=== PATIENT | male | born 1960 | race Caucasian/White ===

== ENCOUNTER 2016-05-30 04:59 | Inpatient (IN) | payer BC ==
[~2016-05-30] VITALS: Ht 167.6 cm; Wt 67.8 kg
[2016-05-30 05:59] LABS: BASO % 0.6 % (0.0-1.0); EOS # 0.2 K/mm3 (0.0-0.50); LARGE UNSTAINED CELL # 0.3 K/mm3 (0.0-0.4); LARGE UNSTAINED CELL % 3.4 % (0.0-4.0); LYMPH # 3.3 K/mm3 (1.5-4.5); LYMPH % 32.7 % (24.0-44.0); MEAN CORPUSCULAR HEMOGLOBIN 32.4 pg (27.0-33.0); MEAN CORPUSCULAR HGB CONC 33.5 g/dl (32.0-36.5); MEAN CORPUSCULAR VOLUME 96.6 fl (80.0-96.0); MONO # 0.9 K/mm3 (0.0-0.8); MONO % 9.4 % (0.0-5.0); NEUTROPHILS # 4.8 K/mm3 (1.8-7.7); PLATELET COUNT, AUTOMATED 291 k/mm3 (150-450); RED CELL DISTRIBUTION WIDTH 12.4 % (11.5-14.5); WHITE BLOOD COUNT 9.2 K/mm3 (4.0-10.0)
[2016-05-30 06:06] LABS: ANION GAP 7 MEQ/L (8-16); BLOOD UREA NITROGEN 12 MG/DL (7-18); CALCIUM LEVEL 9.2 MG/DL (8.5-10.1); CARBON DIOXIDE LEVEL 27 MEQ/L (21-32); CHLORIDE LEVEL 108 MEQ/L (98-107); CREATININE FOR GFR 1.01 MG/DL (0.70-1.30); GLOMERULAR FILTRATION RATE > 60.0 (>56); GLUCOSE, FASTING 87 MG/DL (70-105); POTASSIUM SERUM 3.9 MEQ/L (3.5-5.1); SODIUM LEVEL 142 MEQ/L (136-145)
--- NOTE | 2016-05-30 06:20 | REPUSA ---
CLINICAL HISTORY: Numbness. TECHNIQUE: Multiple axial brain CT scan sections were obtained from base to vertex without contrast a dministration. COMMENTS: The study shows normal configuration of sella turcica. There are no intra or extra-axial collections. There is no mass effect or midline shift. There is no evidence of hematoma formation. No hydrocephal us is present. No abnormal calcifications are noted. No significant abnormalities are seen either in the posterior fossa or supratentorial compartment. The sinuses and mastoid air cells are patent. IMPRESSION: No evidence of acute intracranial pathology. Thank you for your kind referral of this patient.
[2016-05-30] MEDS ORDERED: ASPIRIN 325 MG TAB As Ordered ONE (06:38)
[2016-05-30] MEDS ORDERED: ASPI81TA13 PO (07:12)
[2016-05-30] MEDS ORDERED: ROSU10TA PO (07:12)
--- NOTE | 2016-05-30 07:58 | REP ---
Clinical: Shortness of breath . Comparison: 03/21/2014 . Technique: PA. Findings: The mediastinum and cardiac silhouette are normal. Emphysematous changes are appreciated including right apical bullae. No acute consolidation, effusion, or pneumothorax identified. The skeletal structures are intact and normal. Impression: 1. Emphysematous changes with right apical bullae. No acute cardiopulmonary process. Signed by Hamilton Becker MD 05/30/2016 07:49 A
--- NOTE | 2016-05-30 08:32 | HPEPDOC ---
General Date of Admission 05/30/2016 Chief Complaint The patient is a 55-year-old male admitted with a reason for visit of Numbness Left Side. Source: Patient, Family Exam Limitations: No limitations Timing/Duration: 24 hours Severity: Moderate Associated Symptoms: Weakness History of Present Illness 55 yo male presents for left sided numbness and weakness started yesterday around 3pm. Denies any other complaints. No chest pain, shortness of breath, dysphagia, changes in vision, headaches, nausea, vomiting, diarrhea. Patient does have cardiac history, follows with Dr. Bright, details not clear. Apparently around December 2015 he had an exercise stress test which he could not complete. Subsequently had a nuclear stress test, and then a cardiac catheterization which as per family was negative. He states he was recently started on a new 'heart medication' but does not know the name. Thinks it begins with 'C' and possibly 1000mg. Home Medications Scheduled Aspirin (Aspirin EC) 81 Mg Tab 81 MG PO DAILY (Reported) Rosuvastatin (Crestor) 10 Mg Tab 10 MG PO DAILY (Reported) Allergies Coded Allergies: No Known Drug Allergy (Unverified Allergy, Unknown, 08/09/15) Past Medical History Medical History 1. Dyslipidemia 2. "Heart problems" - to be determined Social History * Smoker: current smoker, greater than 1 pack/day Alcohol: denies Drugs: denies Review of Symptoms Constitutional: Denies: Chills, Fatigue, Fever, Lethargy, Malaise, Night Sweats , Other, Weakness, Weight Loss Eyes: Denies: Conjunctivae inflammation, Eyelid inflammation, Other, Pain, Redness, Vision change ENT: Denies: Dysphagia, Ear Pain, Epistaxis, Head Aches, Other Symptoms, Post Nasal Drip, Sinus Congestion, Sore Throat Skin: Denies: Breakdown, Bruising, Dry, Itching, Jaundice, Lesions, Nail Changes, Other, Rash Pulmonary: Denies: Cough, Dyspnea, Other Symptoms, Pleuritic Chest Pain Cardiovascular: Denies: Chest Pain, Edema, Lt Headedness, Orthopnea, Other Symptoms, Palpitations, Paroxysmal Noc. Dyspnea Gastrointestinal: Denies: Abdominal Pain, Constipation, Diarrhea, Hematochezia , Melena, Nausea, Other Symptoms, Vomiting Genitourinary: Denies: Dysuria, Frequency, Hematuria, Incontinence, Other Symptoms, Retention Musculoskeletal: Denies: Arm Pain, Back Pain, Foot Pain, Hand Pain, Joint Pain , Leg Pain, Muscle Pain, Neck Pain, Other Symptoms, Shoulder Pain, Spasms Neurological: Reports: Numbness, Weakness, Denies: Change in speech, Confusion, Seizures Physical Examination General Exam: Positive: Alert, Cooperative, No Acute Distress Eye Exam: Positive: Conjunctiva & lids normal, EOMI, PERRLA, Negative: Sclera icteric ENT Exam: Positive: Atraumatic, Mucous membr. moist/pink Neck Exam: Positive: Supple Chest Exam: Positive: Clear to auscultation, Normal air movement Heart Exam: Positive: Rate Normal, Regular Rhythm Telemetry: Positive: No significant arrhythmia, Sinus Abdomen Exam: Positive: Normal bowel sounds, Soft, Negative: Tenderness Male Exam: Negative: Edema Neuro Exam: Positive: Normal Speech, Negative: Sensation Intact, Strength at 5/5 X4 ext Laboratory Data Labs 24H Laboratory Tests 2 05/30/16 05:30: Anion Gap 7L, White Blood Count 9.2, Red Blood Count 4.78, Hemoglobin 15.5, Hematocrit 46.1, Mean Corpuscular Volume 96.6H, Mean Corpuscular Hemoglobin 32.4 , Mean Corpuscular Hemoglobin Concent 33.5, Red Cell Distribution Width 12.4, Platelet Count 291, Neutrophils (%) (Auto) 52.0, Lymphocytes (%) (Auto) 32.7, Monocytes (%) (Auto) 9.4H, Eosinophils (%) (Auto) 2.0, Basophils (%) (Auto) 0.6 , Neutrophils # (Auto) 4.8, Lymphocytes # (Auto) 3.3, Monocytes # (Auto) 0.9H, Eosinophils # (Auto) 0.2, Basophils # (Auto) 0.0, Blood Urea Nitrogen 12, Creatinine 1.01, Sodium Level 142, Potassium Level 3.9, Chloride Level 108H, Carbon Dioxide Level 27, Calcium Level 9.2, Total Creatine Kinase 152, Creatine Kinase MB 2.1, Creatine Kinase MB Relative Index 1.38, Glomerular Filtration Rate > 60.0, Large Unclassified Cells # 0.3, Large Unclassified Cells % 3.4, Troponin I < 0.02 CBC/BMP Laboratory Tests 05/30/16 05:30 Calcium Level 9.2, Total Creatine Kinase 152, Red Blood Count 4.78, Mean Corpuscular Volume 96.6 H, Mean Corpuscular Hemoglobin 32.4, Mean Corpuscular Hemoglobin Concent 33.5, Red Cell Distribution Width 12.4, Neutrophils (%) (Auto ) 52.0, Lymphocytes (%) (Auto) 32.7, Monocytes (%) (Auto) 9.4 H, Eosinophils (% ) (Auto) 2.0, Basophils (%) (Auto) 0.6, Neutrophils # (Auto) 4.8, Lymphocytes # (Auto) 3.3, Monocytes # (Auto) 0.9 H, Eosinophils # (Auto) 0.2, Basophils # ( Auto) 0.0 Problems (1) CVA (cerebral vascular accident) Status: Acute Discussed With: Scorekeeper, Patient Problem Specific Plan: Consult Specialist, Monitor Clinically, Repeat Tests Problem Text: MRI/MRA pending. Carotids pending. 2D echocardiogram pending. Lipid profile pending. Neurology consultation pending. Admit to PCU, telemetry monitoring. Neuro checks. Fall precautions. PT, OT eval/treat. (2) Dyslipidemia Status: Chronic Discussed With: Patient Problem Specific Plan: Repeat Labs Problem Text: Continue crestor. Lipid profile pending. Plan / VTE VTE Prophylaxis Ordered?: Yes Plan Diet: Continue Current Activity: Continue Current Therapy: PT, OT Diagnostics: Repeat Labs in AM, MRI, TTE Anticipated Discharge: Home, Home With Services DAVID VITALE MD May 30, 2016 08:32
[2016-05-30 09:04] LABS: ALBUMIN 3.9 GM/DL (3.2-5.2); ALBUMIN/GLOBULIN RATIO 1.05 (1.00-1.93); ALKALINE PHOSPHATASE 97 U/L (45-117); ALT/SGPT 34 U/L (12-78); AST/SGOT 19 U/L (15-37); BILIRUBIN,DIRECT < 0.1 MG/DL (0.0-0.2); BILIRUBIN,TOTAL 0.5 MG/DL (0.2-1.0); TOTAL PROTEIN 7.6 GM/DL (6.4-8.2)
[2016-05-30 09:45] VITALS: BP 137/73
--- NOTE | 2016-05-30 09:45 | REP ---
MRA BRAIN WITHOUT CONTRAST: HISTORY: Infarction. 3D [id number] MR angiography was performed at the level of the [place]. There is no aneurysm, arteriovenous malformation or atherosclerotic lesion. The P1 segment of the right posterior cerebral artery is hypoplastic. Major intracranial vessels are patent. The left vertebral artery is hypoplastic and appears to terminate in the left posterior inferior cerebellar artery. The right vertebral artery is dominant. IMPRESSION: Normal MRA brain. Signed by Bharath Booth MD 05/30/2016 09:47 A
--- NOTE | 2016-05-30 09:51 | REP ---
MRI BRAIN WITHOUT CONTRAST: HISTORY: Infarction. COMPARISON: CT 05/30/2016. Several punctate areas of increased signal intensity on T2-weighted images are present in the subcortical white matter. This represents small vessel ischemic disease. There is no intraparenchymal hemorrhage, infarct, mass or midline shift. The ventricular system is normal in appearance. There is no extracerebral collection. Mucosal thickening is present in the right maxillary sinus. IMPRESSION: Minimal small vessel ischemic disease. Signed by Bharath Booth MD 05/30/2016 09:59 A
--- NOTE | 2016-05-30 11:03 | REP ---
MRA CAROTIDS WITHOUT AND WITH CONTRAST: HISTORY: Infarction. CONTRAST: ProHance 25 mL. Unenhanced 2D [id number] and contrast enhanced MR angiography were performed at the level of the carotid bifurcations. The distal right common carotid artery and origin of the right internal carotid artery are normal. There is mild stenosis of 15% of the right external carotid artery at its origin. There is mild stenosis of 15% of the left internal carotid artery at its origin. There is mild stenosis of 10% of the left external carotid artery at its origin. The left vertebral artery terminates in the left posterior inferior cerebellar artery. The right vertebral artery is dominant. IMPRESSION: Mild stenosis of 15% of the left internal carotid artery at its origin. Signed by Bharath Booth MD 05/30/2016 11:14 A
[2016-05-30] MEDS: ROSUVASTATIN 10 MG TAB (CRESTOR) PO SCH (15:17)
--- NOTE | 2016-05-30 18:15 | EDDOCDS ---
Physician Documentation [facility] Name: Yohan Sandoval Age: 55 yrs Sex: Male : 1960 Arrival Date: 05/30/2016 Time: 04:59 Bed 19 Private MD: Disposition: 05/30 07:10 Critical Care: Critical care not applicable. pc Disposition: 05/30/16 07:13 Hospitalization ordered by Bharath Reeves for Inpatient Admission. Preliminary diagnosis is Cerebral infarction - nonhemorrhagic, right hemispheric, presentation 15 hours after symptoms. - Bed requested for PCU. - Status is Inpatient Admission. ld5 - Condition is Stable. - Problem is new. - Symptoms are unchanged. HPI: 06:09 This 55 yrs old Male presents to ER via Walkin/Carried/Asstd with complaints pc of Numbness Of Arm. 06:09 The history is obtained from the patient. At 3pm yesterday, he began to drop tools from pc his left hand. It felt weak and then his whole arm felt numb. He did not want to be seen for it. He then started to have left leg weakness and trouble walking. His could not convince him to come to the ED. He presents at 15 hours after symptom onset. He denies nay headache, facial numbness, chest pain, SOB. At their worst, the symptoms were moderate. In the emergency department, the symptoms are unchanged. The patient has not experienced similar symptoms in the past. The patient has been recently seen by a family services specialist. Historical: - Allergies: No known drug Allergies; - Home Meds: 1. Unknown 2. Crestor Oral once daily 3. aspirin 81 mg Oral TbEC 1 tab once daily - PMHx: "heart problems"; Hypercholesterolemia; - PSHx: none; - The history from nurses notes was reviewed: and elements of the historical information I have obtained differs from that reported to nursing. - Social history: Smoking status: Patient uses tobacco products, heavy tobacco smoker. No barriers to communication noted, The patient speaks fluent Ukrainian, Speaks appropriately for age. - Family history: Not pertinent. - : The pt / caregiver states he / she is not on anticoagulants. Home medication list is obtained from the patient. - Hospitalizations: : No recent hospitalization is reported. - Exposure Risk Screening:: None identified. - Immunization history:: All immunizations up-to-date. - Social history:: the patient smokes cigarettes 2ppd the patient drinks alcohol, socially. ROS: 06:13 All systems are negative except as listed. pc Exam: 06:13 General Appearance: no acute distress, alert. pc 06:13 EENT: normal eye inspection, ears, nose and throat normal, pharynx normal, mucous membranes moist 06:13 Neck: The exam reveals no acute abnormalities. ROM is normal and painless. No nuchal rigidity is noted.. 06:13 Respiratory: no respiratory distress, normal breath sounds, chest non-tender. 06:13 CVS: regular pulse rate, regular rhythm, normal S1 and S2, no murmurs, strong peripheral pulses, normal capillary refill. 06:13 Abdomen: soft, non-tender, no organomegaly, normal bowel sounds. 06:13 Back: normal inspection. 06:13 Skin: skin color is normal, warm, dry. 06:13 Extremities: The extremities have a grossly normal appearance, are non-tender, without acute ROM abnormalities. 06:13 Neuro: oriented x 3, cranial nerves normal as tested, sensory examination is normal except for pronator drift of LUE and LLE before 2 seconds. 06:13 Psych: normal mood. Vital Signs: 05:09 BP 170 / 81; Pulse 69; Resp 18; Temp 96.5(O); Pulse Ox 97% on R/A; Weight 63.5 kg / nn1 139.99 lbs; Height 5 ft. 6 in. (167.64 cm); Pain 0/10; 05:31 BP 158 / 75 (auto/); mlc 05:31 Pulse 70 MON; Pulse Ox 96% ; mlc 05:46 BP 161 / 93 (auto/); mlc 05:46 Pulse 72 MON; Pulse Ox 97% ; mlc 06:16 BP 137 / 75 (auto/); mlc 06:16 Pulse 58 MON; Pulse Ox 96% ; mlc 06:46 BP 139 / 76 (auto/); kcs 06:46 Pulse 58 MON; Pulse Ox 97% ; kcs 07:16 BP 144 / 76 (auto/); kcs 07:16 Pulse 52 MON; Pulse Ox 97% ; kcs 07:46 BP 137 / 74 (auto/); kcs 07:46 Pulse 64 MON; Resp 20; Pulse Ox 96% ; kcs 13:54 BP 163 / 74 (auto/); ml6 13:54 Pulse 62; Resp 16; Temp 98.4(O); Pulse Ox 98% on R/A; Pain 0/10; ml6 05:09 Body Mass Index 22.60 (63.50 kg, 167.64 cm) nn1 MDM: 05:45 CT Head Without Contrast Ordered. EDMS 05:45 IV Saline Lock ordered. pc 05:45 Campaign Management Senior Manager/Pulse Ox/q 30 min VS ordered. pc 05:46 ECG WITH READING ER PHYS+CARDIAG ordered. EDMS 05:47 CBC with Diff Ordered. EDMS 05:47 MED Profile Ordered. EDMS 05:47 CIP Ordered. EDMS 05:47 Troponin Ordered. EDMS 05:47 Chest, 1 View Ordered. EDMS 06:08 CBC with Diff Reviewed. pc 06:08 MED Profile Reviewed. pc 06:08 CIP Reviewed. pc 06:08 Troponin Reviewed. pc 06:13 Differential Diagnosis: completed CVA of 15 hours duration; nicotine dependence. Plan: pc labs, CT, EKG, CXR, meds. 06:15 Test interpretation: EKG. pc 06:15 Data reviewed: old medical records, vital signs, nurses notes, EKG(s), lab test pc results, all radiology studies and available results. Test interpretation: LAB - all labs as ordered have been reviewed, interpreted and considered in the overall management of the clinical presentation; X-RAY - interpreted by me, 1 view chest chronic obstructive pulmonary disease pattern. 06:26 MRI Screening Tool - Place on chart, inform RN ordered. pc 06:26 -MRA-Brain without contrast Ordered. EDMS 06:28 -MRI-Brain without Ordered. EDMS 06:28 Financial registration complete. pm4 06:28 Test interpretation: interpreted by Radiologist and personally reviewed, Head CT; no pc acute disease. 06:29 [facility] Payment Agreement was scanned into [employer] and attached to record. pm4 06:35 MRI Screening Tool - Place on chart, inform RN complete. mlc 06:35 The patient has been re-examined and re-evaluated. There is no appreciated change of pc the patient's symptoms at this time. Physician consultation: Dr. Trish Hager regarding patient's condition, and he advises ASA 325mg be given now and agrees with the MRIs a ordered, will see in consult . 06:37 Aspirin 325 mg PO once ordered. pc 06:39 BED REQUEST+ADM ordered. EDMS 07:02 MRA CAROTID W/O FOL WITH Ordered. EDMS 07:10 Physician consultation: Dr. Bharath Reeves was contacted at 07:11, regarding admission, pc and will see patient in ED, shortly. Disposition: The historical points, examination findings, and any diagnostic results supporting the provided diagnosis, were discussed with the patient or legal guardian. The need for further work-up and/or treatment in the hospital was explained. 08:22 Admission / Observation Status ordered. EDMS 08:22 ECHOCARD,DOPPLER/COLOR FLOW ordered. EDMS 08:22 CLEAR LIQUIDS DIET ordered. EDMS 08:24 PHYSICAL THERAPY EVAL & TREAT ordered. EDMS 08:40 LIVER PROFILE Ordered. EDMS 08:40 THYROID STIMULATING HORMONE Ordered. EDMS EC:15 Rate is 60 beats/min. Rhythm is regular, Normal Sinus Rhythm. QRS [place] is Normal. IA pc interval is normal. QRS interval is normal. QT interval is normal. No Q waves. T waves are Normal. No ST changes noted. Clinical impression: Normal Sinus Rhythm. Administered Medications: 06:43 Drug: Aspirin 325 mg [aspirin 325 mg tablet (1 tabs)] Route: PO; [facility] Signatures: Dispatcher [employer] EDKY J Luis Chahal MD MD Yadira BallRN RN ld5 Jackie Mckeon RN RN [facility] Romina Murphy RN RN sls2 Irish Valle RN RN nn1 Deshawn [place], Reg Reg pm4 The chart was reviewed and I authenticate all verbal orders and agree with the evaluation and treatment provided.Corrections: (The following items were deleted from the chart) 05:46 05:21 Home Meds: [place] Aspirin 325 mg oral tab 1 tab once daily; [facility] 07:02 06:28 MRA-Carotid with contrast+MR ordered. EDMS EDMS 08:41 08:25 THYROID STIMULATING HORMONE ordered. EDKY EDMS 08:41 08:25 LIVER PROFILE ordered. EDKY EDMS Attachments: 06:29 [facility] Payment Agreement pm4 MTDD
--- NOTE | 2016-05-30 18:15 | EDDOCDS ---
Nurse's Notes [facility] Name: Yohan Sandoval Age: 55 yrs Sex: Male : 1960 Arrival Date: 05/30/2016 Time: 04:59 Bed 19 Private MD: Diagnosis: Cerebral infarction-nonhemorrhagic, right hemispheric, presentation 15 hours after symptoms Presentation: 05/30 05:04 Presenting complaint: Patient states: numbness of left arm began at 1500 yesterday, nn1 reports numbness has become progressively worse. States in the last hour he has been unable to open fist. Reports numbness in left chest. Adult Sepsis Screening: The patient does not have new or worsening altered mentation. Patient's respiratory rate is less than 22. Systolic blood pressure is greater than 100. Patient has a qSOFA score of 0- Negative Sepsis Screen. Suicide/Homicide risk assessment- the patient denies having any suicidal and/or homicidal ideations and does not present with any other emotional, behavioral or mental health complaints. Status: Patient is not a consumer services consultant or dependent. Transition of care: patient was not received from another setting of care. 05:04 Acuity: PRETTY Level 3 nn1 05:04 Method Of Arrival: Walkin/Carried/Asstd nn1 Triage Assessment: 05:10 General: Appears in no apparent distress, Behavior is appropriate for age, cooperative. nn1 General: reports left leg "feels weird". . Pain: Denies pain. HIV screening NA for this visit Offered previously. Neurological: Level of Consciousness is awake, alert, obeys commands, Oriented to person, place, time, Fabrication Supervisor are weak on left Speech is normal, Facial symmetry appears normal. Cardiovascular: Capillary refill < 3 seconds Heart tones S1 S2 present Reports "dont feel right". Respiratory: Airway is patent Respiratory effort is even, unlabored, Respiratory pattern is regular, symmetrical. Derm: Skin is pink, warm & dry. Historical: - Allergies: No known drug Allergies; - Home Meds: 1. Unknown 2. Crestor Oral once daily 3. aspirin 81 mg Oral TbEC 1 tab once daily - PMHx: "heart problems"; Hypercholesterolemia; - PSHx: none; - The history from nurses notes was reviewed: and elements of the historical information I have obtained differs from that reported to nursing. - Social history: Smoking status: Patient uses tobacco products, heavy tobacco smoker. No barriers to communication noted, The patient speaks fluent Serbian, Speaks appropriately for age. - Family history: Not pertinent. - : The pt / caregiver states he / she is not on anticoagulants. Home medication list is obtained from the patient. - Hospitalizations: : No recent hospitalization is reported. - Exposure Risk Screening:: None identified. - Immunization history:: All immunizations up-to-date. - Social history:: the patient smokes cigarettes 2ppd the patient drinks alcohol, socially. Screenin:31 Screening information is obtained from the patient. Fall risk: At risk due to gait mlc disturbance. Assistance ADL's: requires no assistance with activities of daily living. Abuse/DV Screen: The patient / caregiver reports he/she is: not in a situation that causes fear, pain or injury. Nutritional screening: No deficits noted. Advance Directives: Currently, there is no health care proxy. There is no Power of Replenishment Associate. home support is adequate. Assessment: 05:20 General: Appears in no apparent distress, comfortable, Behavior is appropriate for age, mlc cooperative. Pain: Denies pain. Neurological: Level of Consciousness is awake, alert, obeys commands, Oriented to person, place, time, Fabrication Supervisor are weak on left Moves all extremities. Speech is normal, Facial symmetry appears normal. Cardiovascular: Capillary refill < 3 seconds Heart tones S1 S2 present Rhythm is regular Chest pain is denied. Respiratory: Airway is patent Respiratory effort is even, unlabored, Respiratory pattern is regular, Breath sounds are clear bilaterally. Derm: Skin is normal. 06:02 Reassessment: Patient appears in no apparent distress at this time. Patient states mlc symptoms have not improved. pt returned from CT and XRAY, tolerated well. 06:35 General: Appears in no apparent distress, comfortable, Behavior is cooperative. mlc General: pt awaiting MRI. Neurological: Level of Consciousness is awake, alert, Oriented to person, place, time. Respiratory: Airway is patent Respiratory effort is even, unlabored, Respiratory pattern is regular. 07:48 Reassessment: Family states patient is having numbness in his left leg - upon exam kcs patient asked to lift his right leg and instead moves his left leg - able to lift right leg higher than left leg - wiggles toes on both feet but wiggles the toes on right more than left. Strong bilateral pedal pulses.Asked if patient normally knows right from left and family states yes. relationship associate = RSR. Patient denies any shortness of breath. Respirations easy. Color = pink. . 07:53 General: Hospitalist informed.. kcs 07:59 General: Dr. Reeves here to evaluate patient.. kcs 08:00 General: Appears in no apparent distress, comfortable, Behavior is appropriate for age, ml6 cooperative. Pain: Denies pain. Neurological: Level of Consciousness is awake, alert, Oriented to person, place, time, Fabrication Supervisor are weak on left Weakness in left hand's) arm(s) leg(s) foot/feet Gait is steady, Speech is normal, Facial droop on left, Pupils are PERRLA. Cardiovascular: No deficits noted. Capillary refill < 3 seconds is brisk in bilateral fingers toes Heart tones S1 S2. Respiratory: No deficits noted. Airway is patent Respiratory effort is even, Respiratory pattern is regular, symmetrical. GI: No deficits noted. 09:00 Reassessment: Patient appears in no apparent distress at this time. Patient denies pain ml6 at this time. Patient states feeling better. Patient states symptoms have not improved. General: Appears in no apparent distress, comfortable, Behavior is appropriate for age, cooperative. Pain: Denies pain. 10:00 Reassessment: Patient appears in no apparent distress at this time. Patient denies pain ml6 at this time. Patient states feeling better. Patient states symptoms have not improved. no change from previous assessment. 11:00 General: Appears in no apparent distress, comfortable, Behavior is appropriate for age, ml6 cooperative. Pain: Denies pain. Neurological: No deficits noted. Level of Consciousness is awake, alert, Oriented to person, place, time, Fabrication Supervisor are equal bilaterally. Neurological: Fabrication Supervisor are weak on left Moves all extremities. Weakness Gait is steady, Speech is normal, Facial droop on left. Cardiovascular: No deficits noted. Respiratory: No deficits noted. 12:00 Reassessment: Patient appears in no apparent distress at this time. Patient denies pain ml6 at this time. Patient states feeling better. Patient states symptoms have not improved. 13:00 Reassessment: Patient appears in no apparent distress at this time. Patient denies pain ml6 at this time. Patient states feeling better. Vital Signs: 05:09 BP 170 / 81; Pulse 69; Resp 18; Temp 96.5(O); Pulse Ox 97% on R/A; Weight 63.5 kg; nn1 Height 5 ft. 6 in. (167.64 cm); Pain 0/10; 05:31 BP 158 / 75 (auto/); mlc 05:31 Pulse 70 MON; Pulse Ox 96% ; mlc 05:46 BP 161 / 93 (auto/); mlc 05:46 Pulse 72 MON; Pulse Ox 97% ; mlc 06:16 BP 137 / 75 (auto/); mlc 06:16 Pulse 58 MON; Pulse Ox 96% ; mlc 06:46 BP 139 / 76 (auto/); kcs 06:46 Pulse 58 MON; Pulse Ox 97% ; kcs 07:16 BP 144 / 76 (auto/); kcs 07:16 Pulse 52 MON; Pulse Ox 97% ; kcs 07:46 BP 137 / 74 (auto/); kcs 07:46 Pulse 64 MON; Resp 20; Pulse Ox 96% ; kcs 13:54 BP 163 / 74 (auto/); ml6 13:54 Pulse 62; Resp 16; Temp 98.4(O); Pulse Ox 98% on R/A; Pain 0/10; ml6 05:09 Body Mass Index 22.60 (63.50 kg, 167.64 cm) nn1 Vitals: 05:09 Log In Time: May 30, 2016 at 04:59. nn1 ED Course: 05:01 Patient visited by Grisel Santiago Reg. hs2 05:01 Patient moved to Waiting hs2 05:05 Triage Initiated nn1 05:12 Jackie Mckeon,RN is Primary Nurse. nn1 05:12 Patient moved to 9 nn1 05:22 Patient visited by Jackie Mckeon,RUDY. mlc 05:35 J Luis Chahal MD is Attending Physician. pc 05:38 Inserted saline lock: 18 gauge in right antecubital area and blood collected. The nn1 patient tolerated the procedure well. 05:44 Patient visited by J Luis Chahal MD. pc 05:48 Troponin Sent. mlc 05:48 CIP Sent. mlc 05:48 MED Profile Sent. mlc 05:48 CBC with Diff Sent. mlc 06:05 EKG done. (by ED staff). Reviewed by J Luis Chahal MD. cln 06:06 Patient visited by Jillian Sheehan PCA. cln 06:16 The patient / caregiver is instructed regarding the plan of care and ED course. mlc 06:29 [facility] Payment Agreement was scanned into [employer] and attached to record. pm4 06:32 Patient name changed from Yohan\\S\\\\S\\[place]\\S\\ to Yohan\\S\\Srinath\\S\\[place]. EDMS 06:36 Patient visited by Jackie Mckeon RN. mlc 06:36 relationship associate on. Pulse ox on. NIBP on. mlc 06:55 CT Head Without Contrast Returned. EDMS 07:13 Bharath Reeves is Hospitalizing Provider. pc 08:14 Chest, 1 View Returned. EDMS 08:31 Patient moved to MRI dem1 09:38 Primary Nurse role handed off by Jackie Mckeon RN srm 10:17 -MRA-Brain without contrast Returned. EDMS 10:17 -MRI-Brain without Returned. EDMS 11:45 MRA CAROTID W/O FOL WITH Returned. EDMS 14:31 Patient moved to 19 ml6 Administered Medications: 06:43 Drug: Aspirin 325 mg [aspirin 325 mg tablet (1 tabs)] Route: [place] [facility] [place] Results: Lab Order: CBC with Diff; SPEC'M 05/30/16 05:30 Test: WHITE BLOOD COUNT; Value: 9.2; Range: 4.0-10.0; Units: K/mm3; Status: F Test: RED BLOOD COUNT; Value: 4.78; Range: 4.30-6.10; Units: M/mm3; Status: F Test: HEMOGLOBIN; Value: 15.5; Range: 14.0-18.0; Units: g/dl; Status: F Test: HEMATOCRIT; Value: 46.1; Range: 42.0-52.0; Units: %; Status: F Test: MEAN CORPUSCULAR VOLUME; Value: 96.6; Range: 80.0-96.0; Abnormal: Above high normal; Units: fl; Status: F Test: MEAN CORPUSCULAR HEMOGLOBIN; Value: 32.4; Range: 27.0-33.0; Units: pg; Status: F Test: MEAN CORPUSCULAR HGB CONC; Value: 33.5; Range: 32.0-36.5; Units: g/dl; Status: F Test: RED CELL DISTRIBUTION WIDTH; Value: 12.4; Range: 11.5-14.5; Units: %; Status: F Test: PLATELET COUNT, AUTOMATED; Value: 291; Range: 150-450; Units: k/mm3; Status: F Test: NEUTROPHILS %; Value: 52.0; Range: 36.0-66.0; Units: %; Status: F Test: LYMPH %; Value: 32.7; Range: 24.0-44.0; Units: %; Status: F Test: MONO %; Value: 9.4; Range: 0.0-5.0; Abnormal: Above high normal; Units: %; Status: F Test: EOS %; Value: 2.0; Range: 0.0-3.0; Units: %; Status: F Test: BASO %; Value: 0.6; Range: 0.0-1.0; Units: %; Status: F Test: LARGE UNSTAINED CELL %; Value: 3.4; Range: 0.0-4.0; Units: %; Status: F Test: NEUTROPHILS #; Value: 4.8; Range: 1.8-7.7; Units: K/mm3; Status: F Test: LYMPH #; Value: 3.3; Range: 1.5-4.5; Units: K/mm3; Status: F Test: MONO #; Value: 0.9; Range: 0.0-0.8; Abnormal: Above high normal; Units: K/mm3; Status: F Test: EOS #; Value: 0.2; Range: 0.0-0.50; Units: K/mm3; Status: F Test: BASO #; Value: 0.0; Range: 0.0-0.2; Units: K/mm3; Status: F Test: LARGE UNSTAINED CELL #; Value: 0.3; Range: 0.0-0.4; Units: K/mm3; Status: F Lab Order: MED Profile; SPEC'M 05/30/16 05:30 Test: GLUCOSE, FASTING; Value: 87; Range: 70-105; Units: MG/DL; Status: F Test: BLOOD UREA NITROGEN; Value: 12; Range: 7-18; Units: MG/DL; Status: F Test: CREATININE FOR GFR; Value: 1.01; Range: 0.70-1.30; Units: MG/DL; Status: F Test: GLOMERULAR FILTRATION RATE; Value: > 60.0; Range: >56; Status: F Test: SODIUM LEVEL; Value: 142; Range: 136-145; Units: MEQ/L; Status: F Test: POTASSIUM SERUM; Value: 3.9; Range: 3.5-5.1; Units: MEQ/L; Status: F Test: CHLORIDE LEVEL; Value: 108; Range: 98-107; Abnormal: Above high normal; Units: MEQ/L; Status: F Test: CARBON DIOXIDE LEVEL; Value: 27; Range: 21-32; Units: MEQ/L; Status: F Test: ANION GAP; Value: 7; Range: 8-16; Abnormal: Below low normal; Units: MEQ/L; Status: F Test: CALCIUM LEVEL; Value: 9.2; Range: 8.5-10.1; Units: MG/DL; Status: F Test Note: ; Units are mL/min/1.73 m2 Chronic Kidney Disease Staging per NKF: Stage I & II GFR >=60 Normal to Mildly Decreased Stage III GFR 30-59 Moderately Decreased Stage IV GFR 15-29 Severely Decreased Stage V GFR <15 Very Little GFR Left ESRD GFR <15 on COMMUNITY OUTREACH COORDINATOR Test: AST/SGOT; Range: 15-37; Units: U/L; Status: I Test: ALT/SGPT; Range: 12-78; Units: U/L; Status: I Test: ALKALINE PHOSPHATASE; Range: 45-117; Units: U/L; Status: I Test: BILIRUBIN,TOTAL; Range: 0.2-1.0; Units: MG/DL; Status: I Test: BILIRUBIN,DIRECT; Range: 0.0-0.2; Units: MG/DL; Status: I Test: TOTAL PROTEIN; Range: 6.4-8.2; Units: GM/DL; Status: I Test: ALBUMIN; Range: 3.2-5.2; Units: GM/DL; Status: I Test: ALBUMIN/GLOBULIN RATIO; Range: 1.00-1.93; Status: I Test: THYROID STIMULATING HORMONE; Range: 0.358-3.740; Units: uIU/ML; Status: I Lab Order: [facility]; SPEC'M 05/30/16 05:30 Test: CPK CREATINE PHOSPHOKINASE; Value: 152; Range: 39-308; Units: U/L; Status: F Test: CK-MB VALUE MASS; Value: 2.1; Range: 0.0-3.6; Units: NG/ML; Status: F Test: MB/CK RELATIVE INDEX; Value: 1.38; Range: < OR =4; Status: F Test Note: ; DIAGNOSIS CRITERIA MMB ng/ml Relative Index (RI) NON-AMI < or = 5 N/A FITZPATRICK ZONE > 5 < or = 4 AMI > 5 > 4 Lab Order: Troponin; SPEC'M 05/30/16 05:30 Test: TROPONIN I; Value: < 0.02; Range: < 0.10; Units: NG/ML; Status: F Test Note: ; Troponin I Reference Interval for [place] LOCI: 99th Percentile= 0.00-0.045 ng/ml Risk Stratification: <= 0.10 ng/ml Decreased Risk for Adverse Clinical Events. 0.10-1.50 ng/ml Increased Risk for Adverse Clinical Events. Evaluation of additional criterion and/or repeat testing in 2-6 hours is suggested to rule out myocardial damage. >= 1.50 ng/ml Indicative of Myocardial Injury. Lab Order: LIVER PROFILE; SPEC'M 05/30/16 05:30 Test: AST/SGOT; Value: 19; Range: 15-37; Units: U/L; Status: F Test: ALT/SGPT; Value: 34; Range: 12-78; Units: U/L; Status: F Test: ALKALINE PHOSPHATASE; Value: 97; Range: 45-117; Units: U/L; Status: F Test: BILIRUBIN,TOTAL; Value: 0.5; Range: 0.2-1.0; Units: MG/DL; Status: F Test: BILIRUBIN,DIRECT; Value: < 0.1; Range: 0.0-0.2; Units: MG/DL; Status: F Test: TOTAL PROTEIN; Value: 7.6; Range: 6.4-8.2; Units: GM/DL; Status: F Test: ALBUMIN; Value: 3.9; Range: 3.2-5.2; Units: GM/DL; Status: F Test: ALBUMIN/GLOBULIN RATIO; Value: 1.05; Range: 1.00-1.93; Status: F Lab Order: THYROID STIMULATING HORMONE; SPEC'M 05/30/16 05:30 Test: THYROID STIMULATING HORMONE; Value: 7.100; Range: 0.358-3.740; Abnormal: Above high normal; Units: uIU/ML; Status: F Radiology Order: CT Head Without Contrast Test: CT Head Without Contrast REASON FOR EXAMINATION: CVA >4.5hrs; ; CLINICAL HISTORY: Numbness.; TECHNIQUE: Multiple axial brain CT scan sections were obtained from base to vertex without contrast a; dministration.; COMMENTS:; The study shows normal configuration of sella turcica. There are no intra or extra-axial collections.; There is no mass effect or midline shift. There is no evidence of hematoma formation. No hydrocephal; us is present. No abnormal calcifications are noted.; No significant abnormalities are seen either in the posterior fossa or supratentorial compartment.; The sinuses and mastoid air cells are patent.; IMPRESSION:; No evidence of acute intracranial pathology.; Thank you for your kind referral of this patient.; ; Radiology Order: Chest, 1 View Test: Chest, 1 View REASON FOR EXAMINATION: CVA >4.5hrs; Clinical: Shortness of breath .; ; Comparison: 03/21/2014 .; ; Technique: PA.; ; Findings:; The mediastinum and cardiac silhouette are normal. Emphysematous changes are; appreciated including right apical bullae. No acute consolidation, effusion, or; pneumothorax identified. The skeletal structures are intact and normal.; ; Impression:; 1. Emphysematous changes with right apical bullae. No acute cardiopulmonary; process.; ; ; Signed by; Hamilton Becker MD 05/30/2016 07:49 A; Radiology Order: -MRA-Brain without contrast Test: -MRA-Brain without contrast REASON FOR EXAMINATION: CVA >4.5hrs; MRA BRAIN WITHOUT CONTRAST:; ; HISTORY: Infarction.; ; 3D [id number] MR angiography was performed at the level of the marshall of; Johnson. There is no aneurysm, arteriovenous malformation or atherosclerotic; lesion. The P1 segment of the right posterior cerebral artery is hypoplastic.; Major intracranial vessels are patent. The left vertebral artery is hypoplastic; and appears to terminate in the left posterior inferior cerebellar artery. The; right vertebral artery is dominant.; ; IMPRESSION:; ; Normal MRA brain.; ; ; Signed by; Bharath Booth MD 05/30/2016 09:47 A; Radiology Order: -MRI-Brain without Test: -MRI-Brain without REASON FOR EXAMINATION: CVA >4.5hrs; MRI BRAIN WITHOUT CONTRAST:; ; HISTORY: Infarction.; ; COMPARISON: CT 05/30/2016.; ; Several punctate areas of increased signal intensity on T2-weighted images are; present in the subcortical white matter. This represents small vessel ischemic; disease. There is no intraparenchymal hemorrhage, infarct, mass or midline; shift. The ventricular system is normal in appearance. There is no; extracerebral collection. Mucosal thickening is present in the right maxillary; sinus.; ; IMPRESSION:; ; Minimal small vessel ischemic disease.; ; ; Signed by; Bharath Booth MD 05/30/2016 09:59 A; Radiology Order: MRA CAROTID W/O FOL WITH Test: MRA CAROTID W/O FOL WITH REASON FOR EXAMINATION: CVA >4.5hrs; MRA CAROTIDS WITHOUT AND WITH CONTRAST:; ; HISTORY: Infarction.; ; CONTRAST: ProHance 25 mL.; ; Unenhanced 2D [id number] and contrast enhanced MR angiography were performed; at the level of the carotid bifurcations. The distal right common carotid artery; and origin of the right internal carotid artery are normal. There is mild; stenosis of 15% of the right external carotid artery at its origin. There is; mild stenosis of 15% of the left internal carotid artery at its origin. There is; mild stenosis of 10% of the left external carotid artery at its origin. The left; vertebral artery terminates in the left posterior inferior cerebellar artery.; The right vertebral artery is dominant.; ; IMPRESSION:; ; Mild stenosis of 15% of the left internal carotid artery at its origin.; ; ; Signed by; Bharath Booth MD 05/30/2016 11:14 A; Outcome: 06:36 CT Study completed. mlc 07:13 Decision to Hospitalize by Provider. pc 11:43 Discharge Assessment: patient administered narcotics - no. ml6 18:13 Patient left the ED. ld5 Signatures: Dispatcher [employer] EDJ Luis Harley MD MD pc Sleeman, Linda, RN Mirna Lewis RN RUDY [facility] Titi Rodriguez, RN RN ml6 Yadira Ball RN RN ld5 Criss Sweet1 Jakcie Mckeon RN RN [facility] [place] Irish Valle RN RN nn1 Grisel Santiago, Reg Reg hs2 Jillian Sheehan, PHOTOGRAMMETRIC ENGINEER PHOTOGRAMMETRIC ENGINEER cln Deshawn Johnson, Reg Reg pm4 Corrections: (The following items were deleted from the chart) 05:46 05:21 Home Meds: [place] Aspirin 325 mg oral tab 1 tab once daily; [facility] 07:56 07:48 Reassessment: Family states patient is having numbness in his left leg - upon kcs exam patient asked to lift his right leg and instead moves his left leg - able to lift right leg higher than left leg - wiggles toes on both feet but wiggles the toes on right more than left. Asked if patient normally knows right from left and family states yes.. kcs MTDD
[2016-05-30 18:26] VITALS: BP 146/69
[2016-05-30 20:15] VITALS: BP 120/58
[2016-05-30 23:52] VITALS: BP 137/85
[2016-05-31] MEDS ORDERED: SLF 3 ML SYR IV PRN (02:15)
[2016-05-31 04:50] VITALS: BP 116/57
[2016-05-31] MEDS: SLF 3 ML SYR IV SCH ×3 (05:32→21:11)
[2016-05-31 06:03] LABS: BASO % 0.4 % (0.0-1.0); EOS # 0.2 K/mm3 (0.0-0.50); EOS % 1.6 % (0.0-3.0); LARGE UNSTAINED CELL # 0.3 K/mm3 (0.0-0.4); LARGE UNSTAINED CELL % 3.3 % (0.0-4.0); LYMPH # 2.8 K/mm3 (1.5-4.5); LYMPH % 26.4 % (24.0-44.0); MEAN CORPUSCULAR HEMOGLOBIN 32.6 pg (27.0-33.0); MEAN CORPUSCULAR HGB CONC 33.8 g/dl (32.0-36.5); MEAN CORPUSCULAR VOLUME 96.5 fl (80.0-96.0); MONO # 0.9 K/mm3 (0.0-0.8); MONO % 9.6 % (0.0-5.0); NEUTROPHILS # 5.6 K/mm3 (1.8-7.7); NEUTROPHILS % 58.6 % (36.0-66.0); PLATELET COUNT, AUTOMATED 271 k/mm3 (150-450); RED CELL DISTRIBUTION WIDTH 12.3 % (11.5-14.5); WHITE BLOOD COUNT 9.6 K/mm3 (4.0-10.0)
[2016-05-31 06:20] LABS: ANION GAP 9 MEQ/L (8-16); BLOOD UREA NITROGEN 12 MG/DL (7-18); CALCIUM LEVEL 8.6 MG/DL (8.5-10.1); CARBON DIOXIDE LEVEL 24 MEQ/L (21-32); CHLORIDE LEVEL 108 MEQ/L (98-107); CHOLESTEROL LEVEL 162 MG/DL (<200); GLOMERULAR FILTRATION RATE > 60.0 (>56); GLUCOSE, FASTING 88 MG/DL (70-105); POTASSIUM SERUM 3.9 MEQ/L (3.5-5.1); SODIUM LEVEL 141 MEQ/L (136-145); TRIGLYCERIDES LEVEL 156 MG/DL (<150)
[2016-05-31 08:00] VITALS: BP 148/70
--- NOTE | 2016-05-31 08:26 | IPNPDOC ---
Subjective General Date Seen The patient was seen on 05/31/16. Subjective Chief Complaint/HPI The patient is a 55-year-old male admitted with a reason for visit of CVA. General: Denies: Chills, Fatigue, Malaise, Night Sweats, Normal Appetite, Other Symptoms, ROS Unobtainable Constitutional: Denies: Chills, Fatigue, Fever, Lethargy, Malaise, Night Sweats , Other, Weakness, Weight Loss Eyes: Denies: Conjunctivae inflammation, Eyelid inflammation, Other, Pain, Redness, Vision change ENT: Denies: Dysphagia, Ear Pain, Epistaxis, Head Aches, Other Symptoms, Post Nasal Drip, Sinus Congestion, Sore Throat Skin: Denies: Breakdown, Bruising, Dry, Itching, Jaundice, Lesions, Nail Changes, Other, Rash Pulmonary: Denies: Cough, Dyspnea, Other Symptoms, Pleuritic Chest Pain Cardiovascular: Denies: Chest Pain, Edema, Lt Headedness, Orthopnea, Other Symptoms, Palpitations, Paroxysmal Noc. Dyspnea Gastrointestinal: Denies: Abdominal Pain, Constipation, Diarrhea, Hematochezia , Melena, Nausea, Other Symptoms, Vomiting Genitourinary: Denies: Dysuria, Frequency, Hematuria, Incontinence, Other Symptoms, Retention Neurological: Denies: Change in speech, Confusion, Incoordination, Numbness, Other Symptoms, Seizures, Weakness Objective Physical Examination General Exam: Positive: Alert, Cooperative, No Acute Distress Eye Exam: Positive: Conjunctiva & lids normal, EOMI, PERRLA, Negative: Sclera icteric ENT Exam: Positive: Atraumatic, Mucous membr. moist/pink Neck Exam: Positive: Supple Chest Exam: Positive: Clear to auscultation, Normal air movement Heart Exam: Positive: Rate Normal, Regular Rhythm Telemetry: Positive: No significant arrhythmia, Sinus Abdomen Exam: Positive: Normal bowel sounds, Soft, Negative: Tenderness Male Exam: Negative: Edema Neuro Exam: Positive: Normal Speech, Sensation Intact, Strength at 5/5 X4 ext Assessment /Plan Problems Problems: (1) CVA (cerebral vascular accident) Status: Resolved Response to Treatment: Improving Discussed With: Creative Manager, Patient Problem Specific Plan: Consult Specialist, Monitor Clinically, Repeat Tests Problem Text: MRI/MRA brain unremarkable. Carotids unremarkable. 2D echocardiogram pending. Lipid profile noted. Neurology consultation appreciated. Continue telemetry monitoring, neuro checks. Fall precautions. PT, OT eval/treat. Further imaging pending. (2) Dyslipidemia Status: Chronic Discussed With: Patient Problem Specific Plan: Repeat Labs Problem Text: Continue crestor. Lipid profile pending. Plan/VTE VTE Prophylaxis Ordered?: Yes Plan Diet: Continue Current Activity: Continue Current Therapy: PT, OT Diagnostics: Repeat Labs in AM, MRI, TTE Anticipated Discharge: Home, Home With Services VS, I&O, 24H, Fishbone Vital Signs/I&O Vital Signs Date Time Temp Pulse Resp B/P Pulse Ox O2 Delivery O2 Flow Rate FiO2 05/31/16 08:00 97.0 66 18 148/70 96 Room Air I&O- Last 24 Hours up to 6 AM 05/31/16 06:00 Intake Total 480 ml Output Total 650 ml Balance -170 ml Laboratory Data 24H LABS Laboratory Tests 2 05/31/16 05:42: Anion Gap 9, White Blood Count 9.6, Red Blood Count 4.51, Hemoglobin 14.7, Hematocrit 43.5, Mean Corpuscular Volume 96.5H, Mean Corpuscular Hemoglobin 32.6 , Mean Corpuscular Hemoglobin Concent 33.8, Red Cell Distribution Width 12.3, Platelet Count 271, Neutrophils (%) (Auto) 58.6, Lymphocytes (%) (Auto) 26.4, Monocytes (%) (Auto) 9.6H, Eosinophils (%) (Auto) 1.6, Basophils (%) (Auto) 0.4 , Neutrophils # (Auto) 5.6, Lymphocytes # (Auto) 2.8, Monocytes # (Auto) 0.9H, Eosinophils # (Auto) 0.2, Basophils # (Auto) 0.0, Calcium Level 8.6, Triglycerides Level 156H, Cholesterol Level 162, HDL Cholesterol 34L, LDL Cholesterol 96.8, Cholesterol/HDL Ratio 4.764, Glomerular Filtration Rate > 60.0 , Large Unclassified Cells # 0.3, Large Unclassified Cells % 3.3, Non-HDL Cholesterol (LDL + VLDL) 128 CBC/BMP Laboratory Tests 05/31/16 05:42 Red Blood Count 4.51, Mean Corpuscular Volume 96.5 H, Mean Corpuscular Hemoglobin 32.6, Mean Corpuscular Hemoglobin Concent 33.8, Red Cell Distribution Width 12.3, Neutrophils (%) (Auto) 58.6, Lymphocytes (%) (Auto) 26.4, Monocytes (%) (Auto) 9.6 H, Eosinophils (%) (Auto) 1.6, Basophils (%) ( Auto) 0.4, Neutrophils # (Auto) 5.6, Lymphocytes # (Auto) 2.8, Monocytes # (Auto ) 0.9 H, Eosinophils # (Auto) 0.2, Basophils # (Auto) 0.0 DAVID VITALE MD May 31, 2016 08:26
[2016-05-31] MEDS: ROSUVASTATIN 10 MG TAB (CRESTOR) PO SCH (08:39)
[2016-05-31] MEDS ORDERED: ACETAMINOPHEN TAB 650MG DOSE (2X325MG) PO PRN (08:45)
--- NOTE | 2016-05-31 11:38 | REP ---
MRI THORACIC SPINE WITHOUT CONTRAST: HISTORY: Left side weakness. A disc bulge is present at the T6-7 level. There is minimal effacement of the thecal sac without spinal cord compression. The T6 neural foramina are patent. A disc bulge is present at the T7-8 level. There is minimal effacement of the thecal sac without spinal cord compression. The T7 neural foramina are patent. A disc bulge is present at the T8-9 level. There is minimal effacement of the thecal sac without spinal cord compression. The T8 neural foramina are patent. A disc bulge is present at the T9-10 level. There is minimal effacement of the thecal sac without spinal cord compression. The T9 neural foramina are patent. A disc bulge is present at the T10-11 level. There is minimal effacement of the thecal sac without spinal compression. The T10 neural foramina are patent. A disc bulge is present at the T12-L1 level. There is minimal effacement of the thecal sac without spinal cord compression. The T12 neural foramina are patent. There is no other disc bulge or herniation. The remaining neural foramina are patent. The spinal cord is normal in signal intensity. There is no intradural extramedullary lesion. Increased signal intensity on T2-weighted images is present in the end plates of the T6-T10 vertebral bodies. This represents degenerative change. Anterior osteophytes are present in the mid and lower thoracic spine. IMPRESSION: There are disc bulges at the T6-7 through T10-11 and T12-L1 levels without spinal cord compression. Signed by Bharath Booth MD 05/31/2016 11:51 A
--- NOTE | 2016-05-31 11:46 | REP ---
MRI CERVICAL SPINE WITHOUT CONTRAST: HISTORY: Left side weakness. COMPARISON: 01/11/2005. A disc bulge is present at the C3-4 level. There is minimal effacement of the thecal sac without spinal cord compression. Uncinate process hypertrophy is present on the right. This produces moderate narrowing of the right C3 neural foramen. The left C3 neural foramen is patent. A disc bulge with associated osteophyte formation is present at the C4-5 level. There is moderate effacement of the thecal sac without spinal cord compression. Bilateral uncinate process hypertrophy is present. This produces moderate narrowing of the C4 neural foramina. A disc bulge with associated osteophyte formation is present at the C5-6 level. There is moderate effacement of the thecal sac without spinal cord compression. Bilateral uncinate process hypertrophy is present. This produces moderate narrowing of the C5 neural foramina. A disc bulge with associated osteophyte formation is present at the C6-7 level. Bilateral uncinate process hypertrophy is present. This produces moderate narrowing of the C6 neural foramina. There is no other disc bulge or herniation. The remaining neural foramina are patent. The spinal cord is normal in signal intensity. There is no intradural extramedullary lesion. The C4-5 through C6-7 intervertebral discs are decreased in height consistent with disc degeneration. Increased signal intensity on T2-weighted images is present in the end plates of the C4-6 vertebral bodies. This represents degenerative change. IMPRESSION: There is cervical spondylosis at the C3-4 through C6-7 levels without spinal cord compression. Findings at the C3-4 and C4-5 level are new. Signed by Bharath Booth MD 05/31/2016 11:50 A
--- NOTE | 2016-05-31 11:58 | REP ---
MRI LUMBAR SPINE WITHOUT CONTRAST: HISTORY: Left side weakness. Decreased signal intensity on T2-weighted is present in the L1-2, L4-5 and L5-S1 intervertebral discs. The L1-2 and L3-4 through L5-S1 intervertebral discs are decreased in height. These findings are consistent with disc degeneration. There is no disc bulge or herniation at the L1-2 and L2-3 levels. The nerves exit the neural foramina without compression. A diffuse disc bulge is present at the L3-4 level. There is minimal compression of the thecal sac. There is hypertrophy of the posterior articulating facets. The L3 nerves exit the neural foramina without compression. A diffuse disc bulge is present at the L4-5 level. There is minimal compression of the thecal sac. There is hypertrophy of the posterior articulating facets. The L4 nerves exit the neural foramina without compression. A diffuse disc bulge is present at the L5-S1 level. This abuts the thecal sac and S1 nerves. There is hypertrophy of the posterior articulating facets. The L5 nerves exit the neural foramina without compression. The conus medullaris is normal in appearance terminating at the level of the T12-L1 intervertebral disc. A Tarlov cyst is present at the S2 level. Increased signal intensity on T2-weighted images is present in the end plates of the L2-S1 vertebral bodies. This represents degenerative change. IMPRESSION: 1. Diffuse disc bulges at the L3-4 and L4-5 levels with minimal thecal sac compression. 2. Diffuse disc bulge at the L5-S1 level. This abuts the thecal sac and S1 nerves. Signed by Bharath Booth MD 05/31/2016 12:01 P
[2016-05-31 12:00] VITALS: BP 118/60
[2016-05-31 16:00] VITALS: BP 133/60
--- NOTE | 2016-05-31 19:48 | ECHO ---
DATE OF PROCEDURE: 05/31/2016 REFERRING PHYSICIAN: Dr. Bharath Reeves PATIENT LOCATION: ER room 19. REASON FOR ECHOCARDIOGRAM: Cerebrovascular accident (CVA). 2D MEASUREMENTS: IVS: 1.0 cm LV: 4.4 cm LVPW: 1.1 cm LA: 3.4 cm Aorta: 3.1 cm IVC: 1.3 cm DOPPLER MEASUREMENTS: Peak velocity across the aortic valve: 1.2 m/s Peak velocity across the LVOT: 0.74 m/s Mitral E: 0.66, Mitral A: 0.85, with a ratio of 0.8 Maximum tricuspid valve velocity: 1.8 m/s 2D COMMENTS: 1. Normal left ventricular size and wall thickness with a normal global left ventricular systolic function. Left ventricular systolic ejection fraction is estimated at 60% to 65%. 2. Normal left atrium. Normal right atrium and right ventricle. 3. The atrial septum appeared to be normal without evidence of defect or shunt. 4. Normal aortic root. 5. No pericardial effusion seen. 6. Aortic valve, mitral valve, tricuspid valve, and pulmonic valve appear to be normal. The proximal pulmonary artery braches appear to be normal in size. 7. The inferior vena cava was normal in size, central venous pressure is most likely normal. DOPPLER: Detects some mild mitral regurgitation and trace tricuspid regurgitation. The calculated pulmonary artery systolic pressure was normal, less than 30 mmHg. Abnormal relaxation pattern was noted across the mitral valve leaflets as well as the mitral valve annulus consistent with grade 1 left ventricular diastolic dysfunction. IMPRESSION: 1. Normal global left ventricular systolic function. There are features of left ventricular diastolic dysfunction manifested by abnormal relaxation, grade 1. 2. Mild mitral regurgitation. 3. Trace tricuspid regurgitation with a normal calculated pulmonary artery systolic pressure. 4. No intracardiac shunt defected in this transthoracic echocardiogram.
[2016-05-31 20:00] VITALS: BP 113/68
--- NOTE | 2016-05-31 20:58 | ECGEPIP ---
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
[2016-05-31 23:59] VITALS: BP 115/56
[2016-06-01 04:00] VITALS: BP 127/69
[2016-06-01] MEDS: SLF 3 ML SYR IV SCH (05:28)
[2016-06-01 05:47] LABS: ANION GAP 5 MEQ/L (8-16); BLOOD UREA NITROGEN 14 MG/DL (7-18); CALCIUM LEVEL 8.6 MG/DL (8.5-10.1); CARBON DIOXIDE LEVEL 26 MEQ/L (21-32); CHLORIDE LEVEL 110 MEQ/L (98-107); CREATININE FOR GFR 0.98 MG/DL (0.70-1.30); GLOMERULAR FILTRATION RATE > 60.0 (>56); GLUCOSE, FASTING 97 MG/DL (70-105); POTASSIUM SERUM 4.1 MEQ/L (3.5-5.1); SODIUM LEVEL 141 MEQ/L (136-145)
[2016-06-01 05:57] LABS: BASO % 0.6 % (0.0-1.0); EOS # 0.2 K/mm3 (0.0-0.50); EOS % 2.1 % (0.0-3.0); LARGE UNSTAINED CELL # 0.2 K/mm3 (0.0-0.4); LARGE UNSTAINED CELL % 2.7 % (0.0-4.0); MEAN CORPUSCULAR HEMOGLOBIN 31.8 pg (27.0-33.0); MEAN CORPUSCULAR HGB CONC 33.3 g/dl (32.0-36.5); MEAN CORPUSCULAR VOLUME 95.7 fl (80.0-96.0); MONO # 0.8 K/mm3 (0.0-0.8); MONO % 9.3 % (0.0-5.0); NEUTROPHILS # 4.8 K/mm3 (1.8-7.7); NEUTROPHILS % 54.3 % (36.0-66.0); PLATELET COUNT, AUTOMATED 278 k/mm3 (150-450); RED CELL DISTRIBUTION WIDTH 12.2 % (11.5-14.5); WHITE BLOOD COUNT 8.9 K/mm3 (4.0-10.0)
[2016-06-01 07:30] VITALS: BP 128/69
[2016-06-01] MEDS: ROSUVASTATIN 10 MG TAB (CRESTOR) PO SCH (08:35)
--- NOTE | 2016-06-01 13:20 | DS.PDOC ---
Discharge Summary General Date of Admission May 30, 2016 at 08:18 Date of Discharge Jun 01, 2016 at 09:29 Specialist/Consultants Involve: MARSHA CASTANON MD Specialist/Consultants Involve PCP Dr. Chicas Discharge Summary PROCEDURES PERFORMED DURING STAY: [None.] COMPLICATIONS/CHIEF COMPLAINT: CVA ADMISSION DIAGNOSES: 1. r/o CVA 2. Dyslipidemia DISCHARGE DIAGNOSES: 1. carpal tunnel syndrome 2. dyslipidemia HISTORY OF PRESENT ILLNESS: Patient is a 55-year-old male with presenting for almost 12 hours of left upper/lower extremity weakness and numbness. HOSPITAL COURSE: Patient was admitted for further evaluation of suspected CVA. Imaging was negative for CVA, and his symptoms did resolve. Neurology was consulted for further assistance. Further imaging obtained which was also negative for CVA. Patient seen and evaluated by PT and discharged in stable condition with instructions as indicated. DISCHARGE MEDICATIONS: Please see below. ALLERGIES: Please see below. PHYSICAL EXAMINATION ON DISCHARGE: VITAL SIGNS: Please see below. GENERAL: NAD HEENT: NC/AT NECK: supple CARDIOVASCuLAR EXAMINATION: +S1S2, RRR RESPIRATORY EXAMINATION: CTA B/L ABDOMINAL EXAMINATION: soft, NT, +BS EXTREMITIES: no edema SKIN: no rashes NEUROLOGICAL EXAMINATION: no focal deficits other than some left hand weakness, sensation intact throughout, strength 5/5 throughout PSYCHIATRIC EXAMINATION: AAOx3 LABORATORY DATA: Please see below. IMAGING: MRI C/T/L spine revealed disk bulges MRI/MRA brain unremarkable CT head negative for acute pathology VTE Prophylaxis ordered?: yes DISCHARGE CONDITION: Stable. DISPOSITION: Discharge to home ACTIVITY: As tolerated DIET: low fat low cholesterol DISCHARGE PLAN AND INSTRUCTIONS: 1. Follow up PCP in 3-5 days. TIME SPENT ON DISCHARGE: Greater than 30 minutes. Vital Signs/I&Os Vital Signs Date Time Temp Pulse Resp B/P Pulse Ox O2 Delivery O2 Flow Rate FiO2 06/01/16 07:30 97.6 59 18 128/69 96 Room Air I&O- Last 24 Hours up to 6 AM 06/01/16 06:00 Intake Total 1140 ml Balance 1140 ml Laboratory Data Labs 24H Laboratory Tests 2 06/01/16 05:02: Anion Gap 5L, White Blood Count 8.9, Red Blood Count 4.51, Hemoglobin 14.4, Hematocrit 43.1, Mean Corpuscular Volume 95.7, Mean Corpuscular Hemoglobin 31.8 , Mean Corpuscular Hemoglobin Concent 33.3, Red Cell Distribution Width 12.2, Platelet Count 278, Neutrophils (%) (Auto) 54.3, Lymphocytes (%) (Auto) 31.0, Monocytes (%) (Auto) 9.3H, Eosinophils (%) (Auto) 2.1, Basophils (%) (Auto) 0.6 , Neutrophils # (Auto) 4.8, Lymphocytes # (Auto) 3.0, Monocytes # (Auto) 0.8, Eosinophils # (Auto) 0.2, Basophils # (Auto) 0.0, Blood Urea Nitrogen 14, Creatinine 0.98, Sodium Level 141, Potassium Level 4.1, Chloride Level 110H, Carbon Dioxide Level 26, Calcium Level 8.6, Glomerular Filtration Rate > 60.0, Large Unclassified Cells # 0.2, Large Unclassified Cells % 2.7 CBC/BMP Laboratory Tests 06/01/16 05:02 Calcium Level 8.6, Red Blood Count 4.51, Mean Corpuscular Volume 95.7, Mean Corpuscular Hemoglobin 31.8, Mean Corpuscular Hemoglobin Concent 33.3, Red Cell Distribution Width 12.2, Neutrophils (%) (Auto) 54.3, Lymphocytes (%) (Auto) 31.0, Monocytes (%) (Auto) 9.3 H, Eosinophils (%) (Auto) 2.1, Basophils (%) ( Auto) 0.6, Neutrophils # (Auto) 4.8, Lymphocytes # (Auto) 3.0, Monocytes # (Auto ) 0.8, Eosinophils # (Auto) 0.2, Basophils # (Auto) 0.0 Medications Scheduled Aspirin (Aspirin EC) 81 Mg Tab 81 MG PO DAILY Rosuvastatin (Crestor) 10 Mg Tab 10 MG PO DAILY Allergies Coded Allergies: No Known Drug Allergy (Unverified Allergy, Unknown, 08/09/15) DAVID VITALE MD Jun 01, 2016 13:20
--- NOTE | 2016-06-01 19:15 | EDDOCDS ---
Physician Documentation [facility] Name: Yohan Sandoval Age: 55 yrs Sex: Male : 1960 Arrival Date: 05/30/2016 Time: 04:59 Bed 19 Private MD: Disposition: 05/30 07:10 Critical Care: Critical care not applicable. pc Disposition: 05/30/16 07:13 Hospitalization ordered by Bharath Reeves for Inpatient Admission. Preliminary diagnosis is Cerebral infarction - nonhemorrhagic, right hemispheric, presentation 15 hours after symptoms. - Bed requested for PCU. - Status is Inpatient Admission. ld5 - Condition is Stable. - Problem is new. - Symptoms are unchanged. HPI: 06:09 This 55 yrs old Male presents to ER via Walkin/Carried/Asstd with complaints pc of Numbness Of Arm. 06:09 The history is obtained from the patient. At 3pm yesterday, he began to drop tools from pc his left hand. It felt weak and then his whole arm felt numb. He did not want to be seen for it. He then started to have left leg weakness and trouble walking. His could not convince him to come to the ED. He presents at 15 hours after symptom onset. He denies nay headache, facial numbness, chest pain, SOB. At their worst, the symptoms were moderate. In the emergency department, the symptoms are unchanged. The patient has not experienced similar symptoms in the past. The patient has been recently seen by a [employer] representative. Historical: - Allergies: No known drug Allergies; - Home Meds: 1. Unknown 2. Crestor Oral once daily 3. aspirin 81 mg Oral TbEC 1 tab once daily - PMHx: "heart problems"; Hypercholesterolemia; - PSHx: none; - The history from nurses notes was reviewed: and elements of the historical information I have obtained differs from that reported to nursing. - Social history: Smoking status: Patient uses tobacco products, heavy tobacco smoker. No barriers to communication noted, The patient speaks fluent Malay, Speaks appropriately for age. - Family history: Not pertinent. - : The pt / caregiver states he / she is not on anticoagulants. Home medication list is obtained from the patient. - Hospitalizations: : No recent hospitalization is reported. - Exposure Risk Screening:: None identified. - Immunization history:: All immunizations up-to-date. - Social history:: the patient smokes cigarettes 2ppd the patient drinks alcohol, socially. ROS: 06:13 All systems are negative except as listed. pc Exam: 06:13 General Appearance: no acute distress, alert. pc 06:13 EENT: normal eye inspection, ears, nose and throat normal, pharynx normal, mucous membranes moist 06:13 Neck: The exam reveals no acute abnormalities. ROM is normal and painless. No nuchal rigidity is noted.. 06:13 Respiratory: no respiratory distress, normal breath sounds, chest non-tender. 06:13 CVS: regular pulse rate, regular rhythm, normal S1 and S2, no murmurs, strong peripheral pulses, normal capillary refill. 06:13 Abdomen: soft, non-tender, no organomegaly, normal bowel sounds. 06:13 Back: normal inspection. 06:13 Skin: skin color is normal, warm, dry. 06:13 Extremities: The extremities have a grossly normal appearance, are non-tender, without acute ROM abnormalities. 06:13 Neuro: oriented x 3, cranial nerves normal as tested, sensory examination is normal except for pronator drift of LUE and LLE before 2 seconds. 06:13 Psych: normal mood. Vital Signs: 05:09 BP 170 / 81; Pulse 69; Resp 18; Temp 96.5(O); Pulse Ox 97% on R/A; Weight 63.5 kg / nn1 139.99 lbs; Height 5 ft. 6 in. (167.64 cm); Pain 0/10; 05:31 BP 158 / 75 (auto/); mlc 05:31 Pulse 70 MON; Pulse Ox 96% ; mlc 05:46 BP 161 / 93 (auto/); mlc 05:46 Pulse 72 MON; Pulse Ox 97% ; mlc 06:16 BP 137 / 75 (auto/); mlc 06:16 Pulse 58 MON; Pulse Ox 96% ; mlc 06:46 BP 139 / 76 (auto/); kcs 06:46 Pulse 58 MON; Pulse Ox 97% ; kcs 07:16 BP 144 / 76 (auto/); kcs 07:16 Pulse 52 MON; Pulse Ox 97% ; kcs 07:46 BP 137 / 74 (auto/); kcs 07:46 Pulse 64 MON; Resp 20; Pulse Ox 96% ; kcs 13:54 BP 163 / 74 (auto/); ml6 13:54 Pulse 62; Resp 16; Temp 98.4(O); Pulse Ox 98% on R/A; Pain 0/10; ml6 05:09 Body Mass Index 22.60 (63.50 kg, 167.64 cm) nn1 MDM: 05:45 CT Head Without Contrast Ordered. EDMS 05:45 IV Saline Lock ordered. pc 05:45 Sewer And Drain Technician/Pulse Ox/q 30 min VS ordered. pc 05:46 ECG WITH READING ER PHYS+CARDIAG ordered. EDMS 05:47 CBC with Diff Ordered. EDMS 05:47 MED Profile Ordered. EDMS 05:47 CIP Ordered. EDMS 05:47 Troponin Ordered. EDMS 05:47 Chest, 1 View Ordered. EDMS 06:08 CBC with Diff Reviewed. pc 06:08 MED Profile Reviewed. pc 06:08 CIP Reviewed. pc 06:08 Troponin Reviewed. pc 06:13 Differential Diagnosis: completed CVA of 15 hours duration; nicotine dependence. Plan: pc labs, CT, EKG, CXR, meds. 06:15 Test interpretation: EKG. pc 06:15 Data reviewed: old medical records, vital signs, nurses notes, EKG(s), lab test pc results, all radiology studies and available results. Test interpretation: LAB - all labs as ordered have been reviewed, interpreted and considered in the overall management of the clinical presentation; X-RAY - interpreted by me, 1 view chest chronic obstructive pulmonary disease pattern. 06:26 MRI Screening Tool - Place on chart, inform RN ordered. pc 06:26 -MRA-Brain without contrast Ordered. EDMS 06:28 -MRI-Brain without Ordered. EDMS 06:28 Financial registration complete. pm4 06:28 Test interpretation: interpreted by Radiologist and personally reviewed, Head CT; no pc acute disease. 06:29 [facility] Payment Agreement was scanned into [employer] and attached to record. pm4 06:35 MRI Screening Tool - Place on chart, inform RN complete. mlc 06:35 The patient has been re-examined and re-evaluated. There is no appreciated change of pc the patient's symptoms at this time. Physician consultation: Dr. Trish Hager regarding patient's condition, and he advises ASA 325mg be given now and agrees with the MRIs a ordered, will see in consult . 06:37 Aspirin 325 mg PO once ordered. pc 06:39 BED REQUEST+ADM ordered. EDMS 07:02 MRA CAROTID W/O FOL WITH Ordered. EDMS 07:10 Physician consultation: Dr. Bhaarth Reeves was contacted at 07:11, regarding admission, pc and will see patient in ED, shortly. Disposition: The historical points, examination findings, and any diagnostic results supporting the provided diagnosis, were discussed with the patient or legal guardian. The need for further work-up and/or treatment in the hospital was explained. 08:22 Admission / Observation Status ordered. EDMS 08:22 ECHOCARD,DOPPLER/COLOR FLOW ordered. EDMS 08:22 CLEAR LIQUIDS DIET ordered. EDMS 08:24 PHYSICAL THERAPY EVAL & TREAT ordered. EDMS 08:40 LIVER PROFILE Ordered. EDMS 08:40 THYROID STIMULATING HORMONE Ordered. EDMS 05/31 11:26 ECG/EKG was scanned into [employer] and attached to record. EC 06:15 Rate is 60 beats/min. Rhythm is regular, Normal Sinus Rhythm. QRS [place] is Normal. AR pc interval is normal. QRS interval is normal. QT interval is normal. No Q waves. T waves are Normal. No ST changes noted. Clinical impression: Normal Sinus Rhythm. Administered Medications: 06:43 Drug: Aspirin 325 mg [aspirin 325 mg tablet (1 tabs)] Route: PO; [facility] Signatures: Dispatcher [employer] [facility] J Luis Chahal MD MD Kenzie Lazo, Reg Reg gb Yadira Ball RN RN ld5 Jackie Mckeon RN RN [facility] Romina Murphy RN RN [facility] Irish ValleRN RN nn1 Deshawn Johnson, Reg Reg pm4 The chart was reviewed and I authenticate all verbal orders and agree with the evaluation and treatment provided.Corrections: (The following items were deleted from the chart) 05:46 05:21 Home Meds: [place] Aspirin 325 mg oral tab 1 tab once daily; [facility] 07:02 06:28 MRA-Carotid with contrast+MR ordered. EDMA EDMS 08:41 08:25 THYROID STIMULATING HORMONE ordered. EDMA EDMS 08:41 08:25 LIVER PROFILE ordered. EDMA EDMA Attachments: 06:29 [facility] Payment Agreement pm4 05/31 11:26 ECG/EKG Chart Complete MTDD
--- NOTE | 2016-06-01 19:15 | EDDOCDS ---
Nurse's Notes [facility] Name: Yohan Sandoval Age: 55 yrs Sex: Male : 1960 Arrival Date: 05/30/2016 Time: 04:59 Bed 19 Private MD: Diagnosis: Cerebral infarction-nonhemorrhagic, right hemispheric, presentation 15 hours after symptoms Presentation: 05/30 05:04 Presenting complaint: Patient states: numbness of left arm began at 1500 yesterday, nn1 reports numbness has become progressively worse. States in the last hour he has been unable to open fist. Reports numbness in left chest. Adult Sepsis Screening: The patient does not have new or worsening altered mentation. Patient's respiratory rate is less than 22. Systolic blood pressure is greater than 100. Patient has a qSOFA score of 0- Negative Sepsis Screen. Suicide/Homicide risk assessment- the patient denies having any suicidal and/or homicidal ideations and does not present with any other emotional, behavioral or mental health complaints. 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 Transition of care: patient was not received from another setting of care. 05:04 Acuity: PRETTY Level 3 nn1 05:04 Method Of Arrival: Walkin/Carried/Asstd nn1 Triage Assessment: 05:10 General: Appears in no apparent distress, Behavior is appropriate for age, cooperative. nn1 General: reports left leg "feels weird". . Pain: Denies pain. HIV screening NA for this visit Offered previously. 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 Cardiovascular: Capillary refill < 3 seconds Heart tones S1 S2 present Reports "dont feel right". Respiratory: Airway is patent Respiratory effort is even, unlabored, Respiratory pattern is regular, symmetrical. Derm: Skin is pink, warm & dry. Historical: - Allergies: No known drug Allergies; - Home Meds: 1. Unknown 2. Crestor Oral once daily 3. aspirin 81 mg Oral TbEC 1 tab once daily - PMHx: "heart problems"; Hypercholesterolemia; - PSHx: none; - The history from nurses notes was reviewed: and elements of the historical information I have obtained differs from that reported to nursing. - Social history: Smoking status: Patient uses tobacco products, heavy tobacco smoker. No barriers to communication noted, The patient speaks fluent Chinese, Speaks appropriately for age. - Family history: Not pertinent. - : The pt / caregiver states he / she is not on anticoagulants. Home medication list is obtained from the patient. - Hospitalizations: : No recent hospitalization is reported. - Exposure Risk Screening:: None identified. - Immunization history:: All immunizations up-to-date. - Social history:: the patient smokes cigarettes 2ppd the patient drinks alcohol, socially. Screenin:31 Screening information is obtained from the patient. Fall risk: At risk due to gait mlc disturbance. Assistance ADL's: requires no assistance with activities of daily living. Abuse/DV Screen: The patient / caregiver reports he/she is: not in a situation that causes fear, pain or injury. Nutritional screening: No deficits noted. Advance Directives: Currently, there is no health care proxy. There is no Power of Painter [place]. home support is adequate. Assessment: 05:20 General: Appears in no apparent distress, comfortable, Behavior is appropriate for age, mlc cooperative. Pain: Denies pain. 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 Speech is normal, Facial symmetry appears normal. Cardiovascular: Capillary refill < 3 seconds Heart tones S1 S2 present Rhythm is regular Chest pain is denied. Respiratory: Airway is patent Respiratory effort is even, unlabored, Respiratory pattern is regular, Breath sounds are clear bilaterally. Derm: Skin is normal. 06:02 Reassessment: Patient appears in no apparent distress at this time. Patient states mlc symptoms have not improved. pt returned from CT and XRAY, tolerated well. 06:35 General: Appears in no apparent distress, comfortable, Behavior is cooperative. mlc General: pt awaiting MRI. Neurological: Level of Consciousness is awake, alert, Oriented to person, place, time. Respiratory: Airway is patent Respiratory effort is even, unlabored, Respiratory pattern is regular. 07:48 Reassessment: Family states patient is having numbness in his left leg - upon exam kcs patient asked to lift his right leg and instead moves his left leg - able to lift right leg higher than left leg - wiggles toes on both feet but wiggles the toes on right more than left. Strong bilateral pedal pulses.Asked if patient normally knows right from left and family states yes. residential monitor = RSR. Patient denies any shortness of breath. Respirations easy. Color = pink. . 07:53 General: Hospitalist informed.. kcs 07:59 General: Dr. Reeves here to evaluate patient.. kcs 08:00 General: Appears in no apparent distress, comfortable, Behavior is appropriate for age, ml6 cooperative. Pain: Denies pain. 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 Cardiovascular: No deficits noted. Capillary refill < 3 seconds is brisk in bilateral fingers toes Heart tones S1 S2. Respiratory: No deficits noted. Airway is patent Respiratory effort is even, Respiratory pattern is regular, symmetrical. GI: No deficits noted. 09:00 Reassessment: Patient appears in no apparent distress at this time. Patient denies pain ml6 at this time. Patient states feeling better. Patient states symptoms have not improved. General: Appears in no apparent distress, comfortable, Behavior is appropriate for age, cooperative. Pain: Denies pain. 10:00 Reassessment: Patient appears in no apparent distress at this time. Patient denies pain ml6 at this time. Patient states feeling better. Patient states symptoms have not improved. no change from previous assessment. 11:00 General: Appears in no apparent distress, comfortable, Behavior is appropriate for age, ml6 cooperative. Pain: Denies pain. Neurological: No deficits noted. Level of Consciousness is awake, alert, Oriented to person, place, time, Lime Kiln Worker are equal bilaterally. Neurological: Lime Kiln Worker are weak on left Moves all extremities. Weakness Gait is steady, Speech is normal, Facial droop on left. Cardiovascular: No deficits noted. Respiratory: No deficits noted. 12:00 Reassessment: Patient appears in no apparent distress at this time. Patient denies pain ml6 at this time. Patient states feeling better. Patient states symptoms have not improved. 13:00 Reassessment: Patient appears in no apparent distress at this time. Patient denies pain ml6 at this time. Patient states feeling better. Vital Signs: 05:09 BP 170 / 81; Pulse 69; Resp 18; Temp 96.5(O); Pulse Ox 97% on R/A; Weight 63.5 kg; nn1 Height 5 ft. 6 in. (167.64 cm); Pain 0/10; 05:31 BP 158 / 75 (auto/); mlc 05:31 Pulse 70 MON; Pulse Ox 96% ; mlc 05:46 BP 161 / 93 (auto/); mlc 05:46 Pulse 72 MON; Pulse Ox 97% ; mlc 06:16 BP 137 / 75 (auto/); mlc 06:16 Pulse 58 MON; Pulse Ox 96% ; mlc 06:46 BP 139 / 76 (auto/); kcs 06:46 Pulse 58 MON; Pulse Ox 97% ; kcs 07:16 BP 144 / 76 (auto/); kcs 07:16 Pulse 52 MON; Pulse Ox 97% ; kcs 07:46 BP 137 / 74 (auto/); kcs 07:46 Pulse 64 MON; Resp 20; Pulse Ox 96% ; kcs 13:54 BP 163 / 74 (auto/); ml6 13:54 Pulse 62; Resp 16; Temp 98.4(O); Pulse Ox 98% on R/A; Pain 0/10; ml6 05:09 Body Mass Index 22.60 (63.50 kg, 167.64 cm) nn1 Vitals: 05:09 Log In Time: May 30, 2016 at 04:59. nn1 ED Course: 05:01 Patient visited by Grisel Santiago Reg. hs2 05:01 Patient moved to Waiting hs2 05:05 Triage Initiated nn1 05:12 Jackie Mckeon,RN is Primary Nurse. nn1 05:12 Patient moved to 9 nn1 05:22 Patient visited by Jackie Mckeon,RUDY. mlc 05:35 J Luis Chahal MD is Attending Physician. pc 05:38 Inserted saline lock: 18 gauge in right antecubital area and blood collected. The nn1 patient tolerated the procedure well. 05:44 Patient visited by J Luis Chahal MD. pc 05:48 Troponin Sent. mlc 05:48 CIP Sent. mlc 05:48 MED Profile Sent. mlc 05:48 CBC with Diff Sent. mlc 06:05 EKG done. (by ED staff). Reviewed by J Luis Chahal MD. cln 06:06 Patient visited by Sheehan, Crystal, SCRAP CRUSHER. cln 06:16 The patient / caregiver is instructed regarding the plan of care and ED course. mlc 06:29 [facility] Payment Agreement was scanned into [employer] and attached to record. pm4 06:32 Patient name changed from Yohan\\S\\\\S\\[place]\\S\\ to Yohan\\S\\Srinath\\S\\[place]. EDMS 06:36 Patient visited by Jackie Mckeon RN. mlc 06:36 residential monitor on. Pulse ox on. NIBP on. mlc 06:55 CT Head Without Contrast Returned. EDMS 07:13 Bharath Reeves is Hospitalizing Provider. pc 08:14 Chest, 1 View Returned. EDMS 08:31 Patient moved to MRI dem1 09:38 Primary Nurse role handed off by Jackie Mckeon RN srm 10:17 -MRA-Brain without contrast Returned. EDMS 10:17 -MRI-Brain without Returned. EDMS 11:45 MRA CAROTID W/O FOL WITH Returned. EDMS 14:31 Patient moved to 19 ml6 05/31 11:26 ECG/EKG was scanned into [employer] and attached to record. gb Administered Medications: 05/30 06:43 Drug: Aspirin 325 mg [aspirin 325 mg tablet (1 tabs)] Route: PO; [facility] [place] Results: Lab Order: CBC with Diff; SPEC'M 05/30/16 05:30 Test: WHITE BLOOD COUNT; Value: 9.2; Range: 4.0-10.0; Units: K/mm3; Status: F Test: RED BLOOD COUNT; Value: 4.78; Range: 4.30-6.10; Units: M/mm3; Status: F Test: HEMOGLOBIN; Value: 15.5; Range: 14.0-18.0; Units: g/dl; Status: F Test: HEMATOCRIT; Value: 46.1; Range: 42.0-52.0; Units: %; Status: F Test: MEAN CORPUSCULAR VOLUME; Value: 96.6; Range: 80.0-96.0; Abnormal: Above high normal; Units: fl; Status: F Test: MEAN CORPUSCULAR HEMOGLOBIN; Value: 32.4; Range: 27.0-33.0; Units: pg; Status: F Test: MEAN CORPUSCULAR HGB CONC; Value: 33.5; Range: 32.0-36.5; Units: g/dl; Status: F Test: RED CELL DISTRIBUTION WIDTH; Value: 12.4; Range: 11.5-14.5; Units: %; Status: F Test: PLATELET COUNT, AUTOMATED; Value: 291; Range: 150-450; Units: k/mm3; Status: F Test: NEUTROPHILS %; Value: 52.0; Range: 36.0-66.0; Units: %; Status: F Test: LYMPH %; Value: 32.7; Range: 24.0-44.0; Units: %; Status: F Test: MONO %; Value: 9.4; Range: 0.0-5.0; Abnormal: Above high normal; Units: %; Status: F Test: EOS %; Value: 2.0; Range: 0.0-3.0; Units: %; Status: F Test: BASO %; Value: 0.6; Range: 0.0-1.0; Units: %; Status: F Test: LARGE UNSTAINED CELL %; Value: 3.4; Range: 0.0-4.0; Units: %; Status: F Test: NEUTROPHILS #; Value: 4.8; Range: 1.8-7.7; Units: K/mm3; Status: F Test: LYMPH #; Value: 3.3; Range: 1.5-4.5; Units: K/mm3; Status: F Test: MONO #; Value: 0.9; Range: 0.0-0.8; Abnormal: Above high normal; Units: K/mm3; Status: F Test: EOS #; Value: 0.2; Range: 0.0-0.50; Units: K/mm3; Status: F Test: BASO #; Value: 0.0; Range: 0.0-0.2; Units: K/mm3; Status: F Test: LARGE UNSTAINED CELL #; Value: 0.3; Range: 0.0-0.4; Units: K/mm3; Status: F Lab Order: MED Profile; SPEC'M 05/30/16 05:30 Test: GLUCOSE, FASTING; Value: 87; Range: 70-105; Units: MG/DL; Status: F Test: BLOOD UREA NITROGEN; Value: 12; Range: 7-18; Units: MG/DL; Status: F Test: CREATININE FOR GFR; Value: 1.01; Range: 0.70-1.30; Units: MG/DL; Status: F Test: GLOMERULAR FILTRATION RATE; Value: > 60.0; Range: >56; Status: F Test: SODIUM LEVEL; Value: 142; Range: 136-145; Units: MEQ/L; Status: F Test: POTASSIUM SERUM; Value: 3.9; Range: 3.5-5.1; Units: MEQ/L; Status: F Test: CHLORIDE LEVEL; Value: 108; Range: 98-107; Abnormal: Above high normal; Units: MEQ/L; Status: F Test: CARBON DIOXIDE LEVEL; Value: 27; Range: 21-32; Units: MEQ/L; Status: F Test: ANION GAP; Value: 7; Range: 8-16; Abnormal: Below low normal; Units: MEQ/L; Status: F Test: CALCIUM LEVEL; Value: 9.2; Range: 8.5-10.1; Units: MG/DL; Status: F Test Note: ; Units are mL/min/1.73 m2 Chronic Kidney Disease Staging per NKF: Stage I & II GFR >=60 Normal to Mildly Decreased Stage III GFR 30-59 Moderately Decreased Stage IV GFR 15-29 Severely Decreased Stage V GFR <15 Very Little GFR Left ESRD GFR <15 on GLASS INSTALLER TECHNICIAN Test: AST/SGOT; Range: 15-37; Units: U/L; Status: I Test: ALT/SGPT; Range: 12-78; Units: U/L; Status: I Test: ALKALINE PHOSPHATASE; Range: 45-117; Units: U/L; Status: I Test: BILIRUBIN,TOTAL; Range: 0.2-1.0; Units: MG/DL; Status: I Test: BILIRUBIN,DIRECT; Range: 0.0-0.2; Units: MG/DL; Status: I Test: TOTAL PROTEIN; Range: 6.4-8.2; Units: GM/DL; Status: I Test: ALBUMIN; Range: 3.2-5.2; Units: GM/DL; Status: I Test: ALBUMIN/GLOBULIN RATIO; Range: 1.00-1.93; Status: I Test: THYROID STIMULATING HORMONE; Range: 0.358-3.740; Units: uIU/ML; Status: I Lab Order: CIP; [facility]05/30[facility] 05:30 Test: CPK CREATINE PHOSPHOKINASE; Value: 152; Range: 39-308; Units: U/L; Status: F Test: CK-MB VALUE MASS; Value: 2.1; Range: 0.0-3.6; Units: NG/ML; Status: F Test: MB/CK RELATIVE INDEX; Value: 1.38; Range: < OR =4; Status: F Test Note: ; DIAGNOSIS CRITERIA MMB ng/ml Relative Index (RI) NON-AMI < or = 5 N/A FITZPATRICK ZONE > 5 < or = 4 AMI > 5 > 4 Lab Order: Troponin; 05/30/16 05:30 Test: TROPONIN I; Value: < 0.02; Range: < 0.10; Units: NG/ML; Status: F Test Note: ; Troponin I Reference Interval for [place] LOCI: 99th Percentile= 0.00-0.045 ng/ml Risk Stratification: <= 0.10 ng/ml Decreased Risk for Adverse Clinical Events. 0.10-1.50 ng/ml Increased Risk for Adverse Clinical Events. Evaluation of additional criterion and/or repeat testing in 2-6 hours is suggested to rule out myocardial damage. >= 1.50 ng/ml Indicative of Myocardial Injury. Lab Order: LIVER PROFILE; [facility] 05/30/16 05:30 Test: AST/SGOT; Value: 19; Range: 15-37; Units: U/L; Status: F Test: ALT/SGPT; Value: 34; Range: 12-78; Units: U/L; Status: F Test: ALKALINE PHOSPHATASE; Value: 97; Range: 45-117; Units: U/L; Status: F Test: BILIRUBIN,TOTAL; Value: 0.5; Range: 0.2-1.0; Units: MG/DL; Status: F Test: BILIRUBIN,DIRECT; Value: < 0.1; Range: 0.0-0.2; Units: MG/DL; Status: F Test: TOTAL PROTEIN; Value: 7.6; Range: 6.4-8.2; Units: GM/DL; Status: F Test: ALBUMIN; Value: 3.9; Range: 3.2-5.2; Units: GM/DL; Status: F Test: ALBUMIN/GLOBULIN RATIO; Value: 1.05; Range: 1.00-1.93; Status: F Lab Order: THYROID STIMULATING HORMONE; SPEC'M 05/30/16 05:30 Test: THYROID STIMULATING HORMONE; Value: 7.100; Range: 0.358-3.740; Abnormal: Above high normal; Units: uIU/ML; Status: F Radiology Order: CT Head Without Contrast Test: CT Head Without Contrast REASON FOR EXAMINATION: CVA >4.5hrs; ; CLINICAL HISTORY: Numbness.; TECHNIQUE: Multiple axial brain CT scan sections were obtained from base to vertex without contrast a; dministration.; COMMENTS:; The study shows normal configuration of sella turcica. There are no intra or extra-axial collections.; There is no mass effect or midline shift. There is no evidence of hematoma formation. No hydrocephal; us is present. No abnormal calcifications are noted.; No significant abnormalities are seen either in the posterior fossa or supratentorial compartment.; The sinuses and mastoid air cells are patent.; IMPRESSION:; No evidence of acute intracranial pathology.; Thank you for your kind referral of this patient.; ; Radiology Order: Chest, 1 View Test: Chest, 1 View REASON FOR EXAMINATION: CVA >4.5hrs; Clinical: Shortness of breath .; ; Comparison: 03/21/2014 .; ; Technique: PA.; ; Findings:; The mediastinum and cardiac silhouette are normal. Emphysematous changes are; appreciated including right apical bullae. No acute consolidation, effusion, or; pneumothorax identified. The skeletal structures are intact and normal.; ; Impression:; 1. Emphysematous changes with right apical bullae. No acute cardiopulmonary; process.; ; ; Signed by; Hamilton Becker MD 05/30/2016 07:49 A; Radiology Order: -MRA-Brain without contrast Test: -MRA-Brain without contrast REASON FOR EXAMINATION: CVA >4.5hrs; MRA BRAIN WITHOUT CONTRAST:; ; HISTORY: Infarction.; ; 3D [id number] MR angiography was performed at the level of the [place]; [place]. There is no aneurysm, arteriovenous malformation or atherosclerotic; lesion. The P1 segment of the right posterior cerebral artery is hypoplastic.; Major intracranial vessels are patent. The left vertebral artery is hypoplastic; and appears to terminate in the left posterior inferior cerebellar artery. The; right vertebral artery is dominant.; ; IMPRESSION:; ; Normal MRA brain.; ; ; Signed by; Bharath Booth MD 05/30/2016 09:47 A; Radiology Order: -MRI-Brain without Test: -MRI-Brain without REASON FOR EXAMINATION: CVA >4.5hrs; MRI BRAIN WITHOUT CONTRAST:; ; HISTORY: Infarction.; ; COMPARISON: CT 05/30/2016.; ; Several punctate areas of increased signal intensity on T2-weighted images are; present in the subcortical white matter. This represents small vessel ischemic; disease. There is no intraparenchymal hemorrhage, infarct, mass or midline; shift. The ventricular system is normal in appearance. There is no; extracerebral collection. Mucosal thickening is present in the right maxillary; sinus.; ; IMPRESSION:; ; Minimal small vessel ischemic disease.; ; ; Signed by; Bharath Booth MD 05/30/2016 09:59 A; Radiology Order: MRA CAROTID W/O FOL WITH Test: MRA CAROTID W/O FOL WITH REASON FOR EXAMINATION: CVA >4.5hrs; MRA CAROTIDS WITHOUT AND WITH CONTRAST:; ; HISTORY: Infarction.; ; CONTRAST: ProHance 25 mL.; ; Unenhanced 2D [id number] and contrast enhanced MR angiography were performed; at the level of the carotid bifurcations. The distal right common carotid artery; and origin of the right internal carotid artery are normal. There is mild; stenosis of 15% of the right external carotid artery at its origin. There is; mild stenosis of 15% of the left internal carotid artery at its origin. There is; mild stenosis of 10% of the left external carotid artery at its origin. The left; vertebral artery terminates in the left posterior inferior cerebellar artery.; The right vertebral artery is dominant.; ; IMPRESSION:; ; Mild stenosis of 15% of the left internal carotid artery at its origin.; ; ; Signed by; Bharath Booth MD 05/30/2016 11:14 A; Outcome: 06:36 CT Study completed. [facility] 07:13 Decision to Hospitalize by Provider. 11:43 Discharge Assessment: patient administered narcotics - no. ml6 18:13 Patient left the ED. ld5 Signatures: Dispatcher [employer] EDMS J Luis Chahal MD MD pc Sleeman, Kacey, RN RN [facility] Mirna Dickens RN RN [facility] Kenzie Lazo, Reg Reg gb Titi Rodriguez RN RN ml6 Yadira Ball RN RN ld5 Criss Sweet dem1 Jackie Mckeon RN RN [facility] Irish Valle RN RN nn1 Grisel Santiago, Reg Reg hs2 Jillian Sheehan, SCRAP CRUSHER SCRAP CRUSHER cln Deshawn [place], Reg Reg pm4 Corrections: (The following items were deleted from the chart) 05:46 05:21 Home Meds: [place] Aspirin 325 mg oral tab 1 tab once daily; [facility] 07:56 07:48 Reassessment: Family states patient is having numbness in his left leg - upon kcs exam patient asked to lift his right leg and instead moves his left leg - able to lift right leg higher than left leg - wiggles toes on both feet but wiggles the toes on right more than left. Asked if patient normally knows right from left and family states yes.. kcs Chart Complete MTDD
--- NOTE | 2016-06-01 19:15 | EDDOCDS ---
Physician Documentation [facility] Name: Yohan Sandoval Age: 55 yrs Sex: Male : 1960 Arrival Date: 05/30/2016 Time: 04:59 Bed 19 Private MD: Disposition: 05/30 07:10 Critical Care: Critical care not applicable. pc Disposition: 05/30/16 07:13 Hospitalization ordered by Bharath Reeves for Inpatient Admission. Preliminary diagnosis is Cerebral infarction - nonhemorrhagic, right hemispheric, presentation 15 hours after symptoms. - Bed requested for PCU. - Status is Inpatient Admission. ld5 - Condition is Stable. - Problem is new. - Symptoms are unchanged. HPI: 06:09 This 55 yrs old Male presents to ER via Walkin/Carried/Asstd with complaints pc of Numbness Of Arm. 06:09 The history is obtained from the patient. At 3pm yesterday, he began to drop tools from pc his left hand. It felt weak and then his whole arm felt numb. He did not want to be seen for it. He then started to have left leg weakness and trouble walking. His could not convince him to come to the ED. He presents at 15 hours after symptom onset. He denies nay headache, facial numbness, chest pain, SOB. At their worst, the symptoms were moderate. In the emergency department, the symptoms are unchanged. The patient has not experienced similar symptoms in the past. The patient has been recently seen by a nursery attendant. Historical: - Allergies: No known drug Allergies; - Home Meds: 1. Unknown 2. Crestor Oral once daily 3. aspirin 81 mg Oral TbEC 1 tab once daily - PMHx: "heart problems"; Hypercholesterolemia; - PSHx: none; - The history from nurses notes was reviewed: and elements of the historical information I have obtained differs from that reported to nursing. - Social history: Smoking status: Patient uses tobacco products, heavy tobacco smoker. No barriers to communication noted, The patient speaks fluent Croatian, Speaks appropriately for age. - Family history: Not pertinent. - : The pt / caregiver states he / she is not on anticoagulants. Home medication list is obtained from the patient. - Hospitalizations: : No recent hospitalization is reported. - Exposure Risk Screening:: None identified. - Immunization history:: All immunizations up-to-date. - Social history:: the patient smokes cigarettes 2ppd the patient drinks alcohol, socially. ROS: 06:13 All systems are negative except as listed. pc Exam: 06:13 General Appearance: no acute distress, alert. pc 06:13 EENT: normal eye inspection, ears, nose and throat normal, pharynx normal, mucous membranes moist 06:13 Neck: The exam reveals no acute abnormalities. ROM is normal and painless. No nuchal rigidity is noted.. 06:13 Respiratory: no respiratory distress, normal breath sounds, chest non-tender. 06:13 CVS: regular pulse rate, regular rhythm, normal S1 and S2, no murmurs, strong peripheral pulses, normal capillary refill. 06:13 Abdomen: soft, non-tender, no organomegaly, normal bowel sounds. 06:13 Back: normal inspection. 06:13 Skin: skin color is normal, warm, dry. 06:13 Extremities: The extremities have a grossly normal appearance, are non-tender, without acute ROM abnormalities. 06:13 Neuro: oriented x 3, cranial nerves normal as tested, sensory examination is normal except for pronator drift of LUE and LLE before 2 seconds. 06:13 Psych: normal mood. Vital Signs: 05:09 BP 170 / 81; Pulse 69; Resp 18; Temp 96.5(O); Pulse Ox 97% on R/A; Weight 63.5 kg / nn1 139.99 lbs; Height 5 ft. 6 in. (167.64 cm); Pain 0/10; 05:31 BP 158 / 75 (auto/); mlc 05:31 Pulse 70 MON; Pulse Ox 96% ; mlc 05:46 BP 161 / 93 (auto/); mlc 05:46 Pulse 72 MON; Pulse Ox 97% ; mlc 06:16 BP 137 / 75 (auto/); mlc 06:16 Pulse 58 MON; Pulse Ox 96% ; mlc 06:46 BP 139 / 76 (auto/); kcs 06:46 Pulse 58 MON; Pulse Ox 97% ; kcs 07:16 BP 144 / 76 (auto/); kcs 07:16 Pulse 52 MON; Pulse Ox 97% ; kcs 07:46 BP 137 / 74 (auto/); kcs 07:46 Pulse 64 MON; Resp 20; Pulse Ox 96% ; kcs 13:54 BP 163 / 74 (auto/); ml6 13:54 Pulse 62; Resp 16; Temp 98.4(O); Pulse Ox 98% on R/A; Pain 0/10; ml6 05:09 Body Mass Index 22.60 (63.50 kg, 167.64 cm) nn1 MDM: 05:45 CT Head Without Contrast Ordered. EDMS 05:45 IV Saline Lock ordered. pc 05:45 Server Security Administrator/Pulse Ox/q 30 min VS ordered. pc 05:46 ECG WITH READING ER PHYS+CARDIAG ordered. EDMS 05:47 CBC with Diff Ordered. EDMS 05:47 MED Profile Ordered. EDMS 05:47 CIP Ordered. EDMS 05:47 Troponin Ordered. EDMS 05:47 Chest, 1 View Ordered. EDMS 06:08 CBC with Diff Reviewed. pc 06:08 MED Profile Reviewed. pc 06:08 CIP Reviewed. pc 06:08 Troponin Reviewed. pc 06:13 Differential Diagnosis: completed CVA of 15 hours duration; nicotine dependence. Plan: pc labs, CT, EKG, CXR, meds. 06:15 Test interpretation: EKG. pc 06:15 Data reviewed: old medical records, vital signs, nurses notes, EKG(s), lab test pc results, all radiology studies and available results. Test interpretation: LAB - all labs as ordered have been reviewed, interpreted and considered in the overall management of the clinical presentation; X-RAY - interpreted by me, 1 view chest chronic obstructive pulmonary disease pattern. 06:26 MRI Screening Tool - Place on chart, inform RN ordered. pc 06:26 -MRA-Brain without contrast Ordered. EDMS 06:28 -MRI-Brain without Ordered. EDMS 06:28 Financial registration complete. pm4 06:28 Test interpretation: interpreted by Radiologist and personally reviewed, Head CT; no pc acute disease. 06:29 [facility] Payment Agreement was scanned into [employer] and attached to record. pm4 06:35 MRI Screening Tool - Place on chart, inform RN complete. mlc 06:35 The patient has been re-examined and re-evaluated. There is no appreciated change of pc the patient's symptoms at this time. Physician consultation: Dr. Trish Hager regarding patient's condition, and he advises ASA 325mg be given now and agrees with the MRIs a ordered, will see in consult . 06:37 Aspirin 325 mg PO once ordered. pc 06:39 BED REQUEST+ADM ordered. EDMS 07:02 MRA CAROTID W/O FOL WITH Ordered. EDMS 07:10 Physician consultation: Dr. Bharath Reeves was contacted at 07:11, regarding admission, pc and will see patient in ED, shortly. Disposition: The historical points, examination findings, and any diagnostic results supporting the provided diagnosis, were discussed with the patient or legal guardian. The need for further work-up and/or treatment in the hospital was explained. 08:22 Admission / Observation Status ordered. EDMS 08:22 ECHOCARD,DOPPLER/COLOR FLOW ordered. EDMS 08:22 CLEAR LIQUIDS DIET ordered. EDMS 08:24 PHYSICAL THERAPY EVAL & TREAT ordered. EDMS 08:40 LIVER PROFILE Ordered. EDMS 08:40 THYROID STIMULATING HORMONE Ordered. EDMS 05/31 11:26 ECG/EKG was scanned into [employer] and attached to record. EC 06:15 Rate is 60 beats/min. Rhythm is regular, Normal Sinus Rhythm. QRS Mcloud is Normal. OR pc interval is normal. QRS interval is normal. QT interval is normal. No Q waves. T waves are Normal. No ST changes noted. Clinical impression: Normal Sinus Rhythm. Administered Medications: 06:43 Drug: Aspirin 325 mg [aspirin 325 mg tablet (1 tabs)] Route: PO; [facility] [place] Signatures: Dispatcher [employer] [facility] J Luis Chahal MD MD Kenzie Lazo, Reg Reg gb Yadira Ball RN RN ld5 Jackie Mckeon RN RN [facility] [place] Romina Murphy RN RN [facility] Irish ValleRN RN nn1 Deshawn Johnson, Reg Reg pm4 The chart was reviewed and I authenticate all verbal orders and agree with the evaluation and treatment provided.Corrections: (The following items were deleted from the chart) 05:46 05:21 Home Meds: [place] Aspirin 325 mg oral tab 1 tab once daily; [facility] 07:02 06:28 MRA-Carotid with contrast+MR ordered. EDMD EDMS 08:41 08:25 THYROID STIMULATING HORMONE ordered. EDMD EDMS 08:41 08:25 LIVER PROFILE ordered. EDMD EDMD Attachments: 06:29 [facility] Payment Agreement pm4 05/31 11:26 ECG/EKG Chart Complete MTDD
== END 2016-06-01 09:29 | disposition home or self-care (01) | DRG 48 ==
LOC: M ED 04:59 → M ED INP 08:18 → M PCU 18:20
PROVIDERS: ADMIT Internal Medicine; ATTEND Internal Medicine
DX: G56.02 Carpal tunnel syndrome, left upper limb (principal); E78.5 Hyperlipidemia, unspecified; F17.210 Nicotine dependence, cigarettes, uncomplicated; Z79.82 Long term (current) use of aspirin; Z79.899 Other long term (current) drug therapy

== ENCOUNTER → 2016-09-26 | Outpatient (REF) | payer OTHER, MEDICAID ==
[~2016-09-26] MED LIST: ASPI81TA13 PO; CRES10TA32 PO
[2016-09-26 14:14] LABS: BASO # 0.1 K/mm3 (0.0-0.2); BASO % 0.8 % (0.0-1.0); EOS # 0.2 K/mm3 (0.0-0.50); EOS % 1.9 % (0.0-3.0); LARGE UNSTAINED CELL # 0.2 K/mm3 (0.0-0.4); LYMPH % 35.4 % (24.0-44.0); MEAN CORPUSCULAR HGB CONC 34.9 g/dl (32.0-36.5); MEAN CORPUSCULAR VOLUME 97.3 fl (80.0-96.0); MONO # 0.6 K/mm3 (0.0-0.8); MONO % 7.9 % (0.0-5.0); NEUTROPHILS % 51.1 % (36.0-66.0); PLATELET COUNT, AUTOMATED 309 k/mm3 (150-450); RED CELL DISTRIBUTION WIDTH 12.6 % (11.5-14.5); WHITE BLOOD COUNT 7.8 K/mm3 (4.0-10.0)
[2016-09-26 15:35] LABS: BLOOD UREA NITROGEN 16 MG/DL (7-18); GLUCOSE, FASTING 78 MG/DL (70-105)
[2016-09-26 15:36] LABS: ALBUMIN/GLOBULIN RATIO 1.33 (1.00-1.93); ALKALINE PHOSPHATASE 94 U/L (45-117); ALT/SGPT 40 U/L (12-78); ANION GAP 7 MEQ/L (8-16); AST/SGOT 21 U/L (15-37); BILIRUBIN,TOTAL 0.9 MG/DL (0.2-1.0); CALCIUM LEVEL 9.3 MG/DL (8.5-10.1); CARBON DIOXIDE LEVEL 25 MEQ/L (21-32); CHLORIDE LEVEL 106 MEQ/L (98-107); CHOLESTEROL LEVEL 217 MG/DL (<200); CREATININE FOR GFR 0.93 MG/DL (0.70-1.30); GLOMERULAR FILTRATION RATE > 60.0 (>56); POTASSIUM SERUM 4.7 MEQ/L (3.5-5.1); SODIUM LEVEL 138 MEQ/L (136-145); TRIGLYCERIDES LEVEL 161 MG/DL (<150)
== END ==
LOC: M LAB REF 13:28
PROVIDERS: ATTEND Family Medicine Addiction Medicine
DX: F34.1 Dysthymic disorder (principal); E78.5 Hyperlipidemia, unspecified; G56.02 Carpal tunnel syndrome, left upper limb

== ENCOUNTER → 2016-11-20 | Outpatient (REF) ==
[~2016-11-20] MED LIST changes: -ASPI81TA13 PO; +ASPI81TA24 PO
--- NOTE | 2016-11-21 03:35 | REP ---
Clinical: Pain and disability. Technique: AP and lateral views of the cervical spine. Correlation: MRI dated 05/31/2016. Findings: Alignment and lordosis maintained. Vertebral bodies are intact without acute fracture / compression injury or subluxation. Advanced multilevel degenerative disc osteophyte complexes noted and include marginal osteophytes, endplate sclerosis and disc space narrowing. Impression: Advanced multilevel degenerative disc osteophyte complexes. Signed by Hamilton Becker MD 11/21/2016 03:27 A
--- NOTE | 2016-11-21 04:04 | REP ---
Clinical: Pain and disability. Technique: AP, lateral, coned-down views of the lumbosacral spine. Correlation MRI dated 05/31/2016. Findings: Alignment and lordosis maintained. No acute fracture / compression injury or subluxation. Moderate to early advanced multilevel degenerative changes noted throughout the visualized lower thoracic and lumbosacral spine. Findings include osteophytosis, endplate sclerosis/irregularity, disc space narrowing and hypertrophic facet changes. Impression: Moderate to advanced multilevel degenerative changes. No acute fracture / compression injury or subluxation. Signed by Hamilton Becker MD 11/21/2016 03:55 A
== END ==
LOC: M SMT 13:26
PROVIDERS: ATTEND Internal Medicine
DX: Z02.1 Encounter for pre-employment examination (principal)

== ENCOUNTER → 2017-01-08 | Outpatient (REF) | payer OTHER, MEDICAID ==
[2017-01-08 15:39] LABS: ALBUMIN 3.9 GM/DL (3.2-5.2); ALKALINE PHOSPHATASE 84 U/L (45-117); ALT/SGPT 40 U/L (12-78); ANION GAP 9 MEQ/L (8-16); AST/SGOT 19 U/L (15-37); BILIRUBIN,TOTAL 0.4 MG/DL (0.2-1.0); BLOOD UREA NITROGEN 16 MG/DL (7-18); CALCIUM LEVEL 9.3 MG/DL (8.5-10.1); CARBON DIOXIDE LEVEL 26 MEQ/L (21-32); CHLORIDE LEVEL 108 MEQ/L (98-107); CHOLESTEROL LEVEL 199 MG/DL (<200); CREATININE FOR GFR 1.11 MG/DL (0.70-1.30); GLOMERULAR FILTRATION RATE > 60.0 (>56); GLUCOSE, FASTING 129 MG/DL (70-105); POTASSIUM SERUM 4.2 MEQ/L (3.5-5.1); SODIUM LEVEL 143 MEQ/L (136-145); TOTAL PROTEIN 6.9 GM/DL (6.4-8.2); TRIGLYCERIDES LEVEL 195 MG/DL (<150)
== END ==
LOC: M LAB REF 12:51
PROVIDERS: ATTEND Family Medicine Addiction Medicine
DX: E03.8 Other specified hypothyroidism (principal)

== ENCOUNTER → 2018-11-03 | Outpatient (REF) | payer OTHER ==
[~2018-11-03] MED LIST changes: +BACL1TAB9; +CRES10TA PO; -CRES10TA32 PO; +INCR1INH; +LEVO75TA4; +MELO15TA28; +NAPR-837 PO; +VENTAER
[2018-11-03 13:48] LABS: ALBUMIN 3.8 GM/DL (3.2-5.2); ALT/SGPT 29 U/L (12-78); BILIRUBIN,TOTAL 0.8 MG/DL (0.2-1.0); BLOOD UREA NITROGEN 13 MG/DL (7-18); CARBON DIOXIDE LEVEL 28 MEQ/L (21-32); CHLORIDE LEVEL 111 MEQ/L (98-107); CHOLESTEROL LEVEL 191 MG/DL (<200); CHOLESTEROL RISK RATIO 5.305 (<5); CREATININE FOR GFR 1.07 MG/DL (0.70-1.30); GLOMERULAR FILTRATION RATE > 60.0 (>56); GLUCOSE, FASTING 90 MG/DL (70-100); HDL CHOLESTEROL 36 MG/DL (>40); LDL CHOLESTEROL 122 MG/DL (<100); NON-HDL-C 155 MG/DL; POTASSIUM SERUM 4.3 MEQ/L (3.5-5.1); SODIUM LEVEL 143 MEQ/L (136-145); TOTAL PROTEIN 6.9 GM/DL (6.4-8.2); TRIGLYCERIDES LEVEL 164 MG/DL (<150)
== END ==
LOC: M LAB REF 13:16
PROVIDERS: ATTEND Family Medicine Addiction Medicine
DX: E78.5 Hyperlipidemia, unspecified (principal)

== ENCOUNTER 2018-11-20 23:12 | Emergency (ER) | payer MEDICARE, OTHER ==
[~2018-11-20] VITALS: Ht 167.6 cm; Wt 73.9 kg
[~2018-11-20 23:12] MED LIST changes: -BACL1TAB9; -INCR1INH; -LEVO75TA4; -MELO15TA28; -NAPR-837 PO; -VENTAER
[2018-11-20] MEDS ORDERED: VENTAER (23:19)
[2018-11-20] MEDS ORDERED: MELO15TA28 (23:19)
[2018-11-20] MEDS ORDERED: INCR1INH (23:19)
[2018-11-20] MEDS ORDERED: BACL1TAB9 (23:19)
[2018-11-20] MEDS ORDERED: LEVO75TA4 (23:19)
[2018-11-21] MEDS ORDERED: NAPR-837 PO (01:25)
[2018-11-21 01:33] VITALS: BP 138/84
--- NOTE | 2018-11-21 07:46 | REP ---
Clinical: Trauma. Technique: Internal rotation, external rotation, and Y view of the left shoulder. Findings: Cortical irregularity and spurring at the acromioclavicular joint is appreciated. Subacromial space is within normal limits. The glenohumeral joint appears relatively intact and normal. The the no acute fracture or dislocation. No significant calcified loose bodies. Surrounding soft tissues are unremarkable. Impression: Mild age-related degenerative changes. Electronically Signed by Hamilton Becker MD 11/21/2018 07:38 A
== END 2018-11-21 01:42 | disposition home or self-care (01) ==
LOC: M ED 23:12
DX: M25.512 Pain in left shoulder (principal); Z87.39 Personal history of other diseases of the musculoskeletal system and connective tissue; I51.9 Heart disease, unspecified; Z86.73 Personal history of transient ischemic attack (TIA), and cerebral infarction without residual deficits; F17.210 Nicotine dependence, cigarettes, uncomplicated; Z79.899 Other long term (current) drug therapy; Z79.82 Long term (current) use of aspirin

== ENCOUNTER → 2019-02-04 | Outpatient (REF) | payer MEDICARE, OTHER ==
[~2019-02-04] MED LIST changes: +BACL1TAB9; +INCR1INH; +LEVO75TA4; +MELO15TA28; +NAPR-837 PO; +VENTAER
[2019-02-04 14:26] LABS: CHOLESTEROL RISK RATIO 5.882 (<5); FREE T4 1.17 NG/DL (0.76-1.46); THYROID STIMULATING HORMONE 3.41 uIU/ML (0.358-3.740)
== END ==
LOC: M LAB REF 12:26
PROVIDERS: ATTEND Nurse Practitioner Family
DX: E03.9 Hypothyroidism, unspecified (principal)

== ENCOUNTER 2019-03-31 20:43 | Emergency (ER) | payer OTHER ==
[~2019-03-31] VITALS: Ht 165.1 cm; Wt 74.1 kg
[2019-03-31 21:26] LABS: BASO # 0.1 10^3/uL (0.0-0.2); BASO % 0.3 % (0.0-1.0); EOS # 0.1 10^3/uL (0.0-0.5); EOS % 0.3 % (0.0-3.0); HEMATOCRIT 46.4 % (42.0-52.0); HEMOGLOBIN 15.6 g/dl (13.5-17.5); LYMPH # 0.9 10^3/uL (1.5-5.0); LYMPH % 6.3 % (24.0-44.0); MEAN CORPUSCULAR HEMOGLOBIN 32.6 pg (27.0-33.0); MEAN CORPUSCULAR HGB CONC 33.6 g/dl (32.0-36.5); MEAN CORPUSCULAR VOLUME 97.1 fl (80.0-96.0); MONO # 0.5 10^3/uL (0.0-0.8); MONO % 3.3 % (0.0-5.0); NEUTROPHILS # 12.9 10^3/uL (1.5-8.5); NEUTROPHILS % 89.3 % (36.0-66.0); PLATELET COUNT, AUTOMATED 308 10^3/uL (150-450); RED BLOOD COUNT 4.78 10^6/uL (4.30-6.10); WHITE BLOOD COUNT 14.4 10^3/uL (4.0-10.0)
[2019-03-31 21:38] LABS: INR 1.03; PROTHROMBIN TIME 13.2 SECONDS (11.8-14.0)
[2019-03-31 21:59] LABS: ALBUMIN 3.7 GM/DL (3.2-5.2); ALT/SGPT 27 U/L (12-78); BILIRUBIN,DIRECT 0.2 MG/DL (0.0-0.2); BILIRUBIN,TOTAL 1.1 MG/DL (0.2-1.0); BLOOD UREA NITROGEN 13 MG/DL (7-18); CARBON DIOXIDE LEVEL 24 MEQ/L (21-32); CHLORIDE LEVEL 110 MEQ/L (98-107); CK-MB VALUE MASS < 1.0 NG/ML (<3.6); CPK CREATINE PHOSPHOKINASE 251 U/L (39-308); CREATININE FOR GFR 0.98 MG/DL (0.70-1.30); GLOMERULAR FILTRATION RATE > 60.0 (>56); GLUCOSE, FASTING 110 MG/DL (70-100); LIPASE 79 U/L (73-393); SODIUM LEVEL 140 MEQ/L (136-145); TOTAL PROTEIN 6.7 GM/DL (6.4-8.2); TROPONIN I < 0.02 NG/ML (< 0.10)
[2019-03-31] MEDS ORDERED: NS 500 ML IV ONE (22:30)
[2019-03-31] MEDS ORDERED: METOCLOPRAMIDE INJ 10MG/2ML VIAL (J2765) IV ONE (22:30)
--- NOTE | 2019-03-31 23:01 | REPVR ---
PROCEDURE INFORMATION: Exam: CT Head Without Contrast Exam date and time: 03/31/2019 10:46 PM Age: 58 years old Clinical history: Pain; Headache; Additional info: Headache S/P stroke eval for ich TECHNIQUE: Imaging protocol: Computed tomography of the head without contrast. Radiation optimization: All CT scans at this facility use at least one of these dose optimization techniques: automated exposure control; mA and/or kV adjustment per patient size (includes targeted exams where dose is matched to clinical indication); or iterative reconstruction. COMPARISON: CT Head without contrast 05/30/2016 5:52 AM FINDINGS: Brain: Normal. No hemorrhage. Unremarkable white matter. No mass effect. Ventricles: Normal. No ventriculomegaly. Bones/joints: Unremarkable. No acute fracture. Sinuses: Inflammatory changes in the right sphenoid sinus. Mastoid air cells: Visualized mastoid air cells are well aerated. Soft tissues: Unremarkable. IMPRESSION: No acute intracranial findings. Electronically signed by: Deshawn Gupta On 03/31/2019 23:00:35 PM
--- NOTE | 2019-03-31 23:01 | REPVR ---
PROCEDURE INFORMATION: Exam: XR Chest, 1 View Exam date and time: 03/31/2019 9:34 PM Age: 58 years old Clinical history: Chest pain; Type not specified TECHNIQUE: Imaging protocol: XR of the chest Views: 1 view. COMPARISON: CR Chest, 1 view 05/30/2016 6:02 AM FINDINGS: Lungs: Bullous disease right pulmonary apex with fibrotic stranding. Lungs otherwise unremarkable. Pleural space: Unremarkable. No pleural effusion. No pneumothorax. Heart/Mediastinum: Unremarkable. No cardiomegaly. Bones/joints: Unremarkable. IMPRESSION: Bullous disease right pulmonary apex. Lungs otherwise unremarkable. Electronically signed by: Deshawn Gupta On 03/31/2019 23:01:22 PM
[2019-03-31 23:22] LABS: INFLUENZA A AMPLIFICATION NEGATIVE (NEGATIVE); INFLUENZA B AMPLIFICATION NEGATIVE (NEGATIVE)
[2019-03-31 23:30] VITALS: BP 117/54
--- NOTE | 2019-04-01 22:00 | ECGEPIP ---
[facility] - ED Test Date: 2019-03-31 Pat Name: SONY CRUZ Department: Room: - Gender: Male [place]: : 1960 Requested By: JULES Red Order Number: [id number] Reading MD: Liseth Murphy Measurements Intervals [place] Rate: 94 P: 67 AL: 151 QRS: 47 QRSD: 87 T: 50 QT: 335 QTc: 421 Interpretive Statements SINUS RHYTHM POSSIBLE LEFT ATRIAL ENLARGEMENT NSTTW abnormalities INCREASED RATE 05/30/16 Electronically Signed on 04-01-2019 22:00:07 EST by Liseth Murphy
== END 2019-04-01 00:09 | disposition home or self-care (01) ==
LOC: M ED 20:43
DX: R51 Headache (principal); J06.9 Acute upper respiratory infection, unspecified; E78.5 Hyperlipidemia, unspecified; Z86.73 Personal history of transient ischemic attack (TIA), and cerebral infarction without residual deficits; F17.200 Nicotine dependence, unspecified, uncomplicated; Z79.899 Other long term (current) drug therapy
CPT/HCPCS: 70450; 71045; 80048; 80076; 82550; 82553; 83690; 84484; 85025; 85610; 87502; 93005; 93041; 94760; 96361; 96374; 99285; J2765

== ENCOUNTER → 2019-08-26 | Outpatient (REF) | payer OTHER ==
[2019-08-26 13:30] LABS: ALT/SGPT 39 U/L (12-78); BILIRUBIN,TOTAL 0.8 MG/DL (0.2-1.0); BLOOD UREA NITROGEN 20 MG/DL (7-18); CALCIUM LEVEL 9.1 MG/DL (8.5-10.1); CARBON DIOXIDE LEVEL 27 MEQ/L (21-32); CHLORIDE LEVEL 110 MEQ/L (98-107); CHOLESTEROL LEVEL 204 MG/DL (<200); CREATININE FOR GFR 1.08 MG/DL (0.70-1.30); GLOMERULAR FILTRATION RATE > 60.0 (>56); GLUCOSE, FASTING 98 MG/DL (70-100); POTASSIUM SERUM 4.6 MEQ/L (3.5-5.1); SODIUM LEVEL 142 MEQ/L (136-145); TRIGLYCERIDES LEVEL 146 MG/DL (<150)
[2019-08-26 13:31] LABS: ALBUMIN 3.9 GM/DL (3.2-5.2); HDL CHOLESTEROL 34 MG/DL (>40); LDL CHOLESTEROL 141 MG/DL (<100); NON-HDL-C 170 MG/DL; TOTAL PROTEIN 6.8 GM/DL (6.4-8.2)
== END ==
LOC: M LAB REF 12:30
PROVIDERS: ATTEND Family Medicine Addiction Medicine
DX: E03.9 Hypothyroidism, unspecified (principal); I25.10 Atherosclerotic heart disease of native coronary artery without angina pectoris; E78.5 Hyperlipidemia, unspecified

== ENCOUNTER → 2019-09-06 | Outpatient (CLI) | payer OTHER ==
--- NOTE | 2019-09-07 01:06 | REP ---
Clinical: Bilateral hip pain. Technique: Frontal view of the pelvis with neutral and frog lateral views of the right and left hip. Findings: No acute fracture dislocation. Bilateral hip joints demonstrate symmetric age-related changes including subtle increase sclerosis, very minimal joint space narrowing, and mild marginal spurring. No overt osteophytosis, subchondral cystic changes, or periarticular calcifications/loose bodies noted. Impression: Symmetric age-related changes are suggested. Electronically Signed by Hamilton Becker MD 09/07/2019 12:57 A
== END ==
LOC: M WUC 12:19
PROVIDERS: ATTEND Family Medicine Addiction Medicine
DX: M25.559 Pain in unspecified hip (principal)

== ENCOUNTER → 2019-11-24 | Outpatient (REF) | payer MEDICARE ==
[2020-01-08 12:41] LABS: ALBUMIN 3.9 GM/DL (3.2-5.2); ALT/SGPT 30 U/L (12-78); BLOOD UREA NITROGEN 16 MG/DL (7-18); CARBON DIOXIDE LEVEL 27 MEQ/L (21-32); CHLORIDE LEVEL 109 MEQ/L (98-107); CHOLESTEROL LEVEL 212 MG/DL (<200); CHOLESTEROL RISK RATIO 6.838 (<5); GLOMERULAR FILTRATION RATE > 60.0 (>56); GLUCOSE, FASTING 91 MG/DL (70-100); HDL CHOLESTEROL 31 MG/DL (>40); LDL CHOLESTEROL 154 MG/DL (<100); NON-HDL-C 181 MG/DL; POTASSIUM SERUM 4.7 MEQ/L (3.5-5.1); SODIUM LEVEL 139 MEQ/L (136-145); TOTAL PROTEIN 6.8 GM/DL (6.4-8.2); TRIGLYCERIDES LEVEL 135 MG/DL (<150)
== END ==
LOC: M LAB REF 08:12
PROVIDERS: ATTEND Family Medicine Addiction Medicine
DX: Z00.01 Encounter for general adult medical examination with abnormal findings (principal); M25.559 Pain in unspecified hip; E03.9 Hypothyroidism, unspecified; F34.1 Dysthymic disorder

== ENCOUNTER → 2020-06-26 | Outpatient (REF) | payer MEDICARE ==
[2020-06-26 13:15] LABS: ALT/SGPT 45 U/L (12-78); BILIRUBIN,TOTAL 0.7 MG/DL (0.2-1.0); BLOOD UREA NITROGEN 14 MG/DL (7-18); CALCIUM LEVEL 8.9 MG/DL (8.5-10.1); CARBON DIOXIDE LEVEL 26 MEQ/L (21-32); CHLORIDE LEVEL 110 MEQ/L (98-107); CHOLESTEROL LEVEL 146 MG/DL (<200); CHOLESTEROL RISK RATIO 4.171 (<5); CREATININE FOR GFR 1.05 MG/DL (0.70-1.30); GLOMERULAR FILTRATION RATE > 60.0 (>56); GLUCOSE, FASTING 92 MG/DL (70-100); HDL CHOLESTEROL 35 MG/DL (>40); NON-HDL-C 111 MG/DL; POTASSIUM SERUM 4.8 MEQ/L (3.5-5.1); SODIUM LEVEL 141 MEQ/L (136-145); TRIGLYCERIDES LEVEL 112 MG/DL (<150)
[2020-06-26 13:16] LABS: ALBUMIN 3.9 GM/DL (3.2-5.2); LDL CHOLESTEROL 89 MG/DL (<100); TOTAL PROTEIN 6.7 GM/DL (6.4-8.2)
== END ==
LOC: M LAB REF 12:12
PROVIDERS: ATTEND Family Medicine Addiction Medicine
DX: E78.5 Hyperlipidemia, unspecified (principal); M65.30 Trigger finger, unspecified finger; E03.9 Hypothyroidism, unspecified

== ENCOUNTER → 2021-11-22 | Outpatient (CLI) | payer MEDICARE | LOC: M RAD 08:17 | PROVIDERS: ATTEND Family Medicine | DX: Z12.2 Encounter for screening for malignant neoplasm of respiratory organs (principal); I70.0 Atherosclerosis of aorta; I25.10 Atherosclerotic heart disease of native coronary artery without angina pectoris; R91.8 Other nonspecific abnormal finding of lung field; J43.9 Emphysema, unspecified; M51.34 Other intervertebral disc degeneration, thoracic region ==

== ENCOUNTER → 2023-01-02 | Outpatient (CLI) | payer MEDICARE | LOC: M RAD 08:51 | PROVIDERS: ATTEND Family Medicine | DX: Z12.2 Encounter for screening for malignant neoplasm of respiratory organs (principal); F17.210 Nicotine dependence, cigarettes, uncomplicated; R91.8 Other nonspecific abnormal finding of lung field ==

== ENCOUNTER → 2023-11-10 | Outpatient (CLI) | payer MEDICARE ==
[2023-11-10 19:29] LABS: BASO # 0.1 10^3/uL (0.0-0.2); BASO % 0.7 % (0.0-1.0); EOS # 0.1 10^3/uL (0.0-0.5); EOS % 1.1 % (0.0-3.0); HEMATOCRIT 48.7 % (42.0-52.0); HEMOGLOBIN 16.4 g/dl (13.5-17.5); LYMPH # 3.4 10^3/uL (1.5-5.0); LYMPH % 28.6 % (24.0-44.0); MEAN CORPUSCULAR HEMOGLOBIN 33.6 pg (27.0-33.0); MEAN CORPUSCULAR HGB CONC 33.7 g/dl (32.0-36.5); MEAN CORPUSCULAR VOLUME 99.8 fl (80.0-96.0); MONO # 0.6 10^3/uL (0.0-0.8); NEUTROPHILS # 7.7 10^3/uL (1.5-8.5); NEUTROPHILS % 64.1 % (36.0-66.0); PLATELET COUNT, AUTOMATED 277 10^3/uL (150-450); RED BLOOD COUNT 4.88 10^6/uL (4.30-6.10)
[2023-11-10 19:41] LABS: ERYTHROCYTE SEDIMENTATION RATE 8 mm/hr (0-20)
[2023-11-10 19:55] LABS: THYROID STIMULATING HORMONE 9.065 uIU/ML (0.55-4.78); THYROXINE (T4) 8.1 UG/DL (4.5-10.9)
[2023-11-10 19:58] LABS: FOLATE 10.8 NG/ML (>5.4); VITAMIN B12 LEVEL 408 PG/ML (211-911)
[2023-11-10 19:59] LABS: ALBUMIN 4.1 G/DL (3.2-5.2); ALKALINE PHOSPHATASE 92 U/L (46-116); ALT/SGPT 29 U/L (7.0-40); AST/SGOT 18 U/L (<34); BILIRUBIN,TOTAL 0.5 MG/DL (0.3-1.2); BLOOD UREA NITROGEN 9 MG/DL (9-23); CARBON DIOXIDE LEVEL 26 MMOL/L (20-31); CHLORIDE LEVEL 109 MMOL/L (98-107); CREATININE FOR GFR 1.03 MG/DL (0.70-1.30); GLOMERULAR FILTRATION RATE > 60.0 (>49); GLUCOSE, FASTING 85 MG/DL (74-106); POTASSIUM SERUM 4.4 MMOL/L (3.5-5.1); SODIUM LEVEL 139 MMOL/L (136-145); TOTAL PROTEIN 6.8 G/DL (5.7-8.2)
[2023-11-10 20:04] LABS: FREE THYROXINE INDEX 2.5 % (1.4-3.8); T UPTAKE 30.4 % (22.5-37.0)
[2023-11-10 20:09] LABS: HEMOGLOBIN A1c 5.5 % (4.0-6.0)
== END ==
LOC: M PLALAB 10:29
PROVIDERS: ATTEND Psychiatry & Neurology Neurology
DX: R41.3 Other amnesia (principal); R26.89 Other abnormalities of gait and mobility; E11.9 Type 2 diabetes mellitus without complications; E07.9 Disorder of thyroid, unspecified; E53.8 Deficiency of other specified B group vitamins

== ENCOUNTER → 2024-06-11 | Outpatient (CLI) | payer MEDICARE | LOC: M RAD 09:53 | PROVIDERS: ATTEND Family Medicine | DX: F17.210 Nicotine dependence, cigarettes, uncomplicated (principal); J43.9 Emphysema, unspecified; J98.11 Atelectasis ==

== ENCOUNTER → 2025-01-20 | Outpatient (CLI) | payer MEDICARE ==
[~2025-01-20] MED LIST changes: +ATOR40TA75 PO; +CELE1CAP4 PO; +DONE10TA90 PO; +PROA1AER2 INH; +SYNT75TA PO; +TERB250T90 PO; +TREL1AER INH; +chantix PO
[2025-01-20 10:47] LABS: BASO # 0.1 10^3/uL (0.0-0.2); BASO % 0.9 % (0.0-1.0); EOS # 0.1 10^3/uL (0.0-0.5); EOS % 1.1 % (0.0-3.0); LYMPH # 2.8 10^3/uL (1.5-5.0); LYMPH % 27.7 % (24.0-44.0); MONO # 0.8 10^3/uL (0.0-0.8); MONO % 7.9 % (2.0-8.0); NEUTROPHILS # 6.2 10^3/uL (1.5-8.5); NEUTROPHILS % 61.8 % (36.0-66.0); PLATELET COUNT, AUTOMATED 285 10^3/uL (150-450)
[2025-01-20 11:10] LABS: PSA SCREENING 0.93 NG/ML (< 4.00)
[2025-01-20 11:12] LABS: ALT/SGPT 23.0 U/L (7.0-40); AST/SGOT 20.0 U/L (<34); CALCIUM LEVEL 9.2 MG/DL (8.3-10.6); CARBON DIOXIDE LEVEL 26.0 MMOL/L (20-31); CHLORIDE LEVEL 107.0 MMOL/L (98-107); CREATININE FOR GFR 1.04 MG/DL (0.70-1.30); GLOMERULAR FILTRATION RATE 80.7 (>49); POTASSIUM SERUM 4.6 MMOL/L (3.5-5.1); SODIUM LEVEL 139.0 MMOL/L (136-145)
[2025-01-20 11:14] LABS: FREE T4 1.21 NG/DL (0.89-1.76)
== END ==
LOC: M PLALAB 09:14
PROVIDERS: ATTEND Family Medicine
DX: E03.9 Hypothyroidism, unspecified (principal); E78.5 Hyperlipidemia, unspecified; Z12.5 Encounter for screening for malignant neoplasm of prostate
CPT/HCPCS: 36415; 80053; 84439; 84443; 85025; G0103